=== PATIENT | male | born 1985 | race Caucasian/White ===

== ENCOUNTER 2020-03-19 00:03 | Emergency (ER) | payer MEDICAID, SELFPAY ==
[2020-03-19 00:04] VITALS: BP 178/109; PULSE 71; RESP 16; TEMP 36.9; O2SAT 99; BMI 33.0
--- NOTE | 2020-03-19 00:24 | PC.NURSE ---
pt offered dental balls and refused
--- NOTE | 2020-03-19 00:27 | HMH.EDDENT ---
ED Disposition Clinical Impression: Dental caries, Toothache Disposition: Home, Self-Care Condition on Discharge: Good Instructions: DI for Dental Pain Additional Instructions: use meds and see dentist Prescriptions: cephALEXin [Keflex 500mg Cap] 500 mg PO TID #30 cap Prescription Printed - Critical Care Critical Care Time: No Attestation: On , the high probability of a clinically significant, sudden or life threatening deterioration of the following system(s) required my full and direct attention, intervention and personal management. The time I documented below is in addition to time spent performing reported procedures but includes the following listed in this critical care notation. Medical Decision Making - Medical Records Medical records reviewed: Yes: I reviewed the patient's medical records. - Javier Inquiry Pt receiving controlled substance: No Vital Signs: 03/19/20 00:04 Temperature 98.5 F Temperature Source Oral Pulse Rate [Left Radial] 71 Respiratory Rate 16 Blood Pressure [Right Arm] 178/109 H Blood Pressure Mean [Right Arm] 132 Blood Pressure Source [Right Arm] Automatic Cuff Blood Pressure Position [Right Arm] Sitting 02 Sat by Pulse Oximetry 99 Oxygen Delivery Method Room Air - Lab Data Lab results reviewed: Yes: I reviewed the patient's lab results. Dental HPI - General Chief complaint: Dental/Oral Stated complaint: toothache Time Seen by Provider: 03/19/20 00:27 Mode of Arrival: Ambulatory Source of Information: Patient, Medical Record Limitations: No Limitations Description of Symptoms (Recalled from ER Triage Doc. by RN): pt complains of dental pain at his right wisdom tooth for the last 4 months. pt denies hx of fever or chills - History of Present Illness HPI Narrative: pt with rt sided dental pain - worse over the last few days Complaint: tooth pain Onset (ago): day(s) Duration: intermittent Severity: moderate Context: history of dental caries, poor dental care Treatment prior to arrival: none - Related Data Previous Rx's Medication Instructions Recorded cephALEXin [Keflex 500mg Cap] 500 mg PO TID #30 cap 03/19/20 Allergies Allergy/AdvReac Type Severity Reaction Status Date / Time promethazine [PROMETHAZINE] Allergy Unknown Nausea Verified 03/19/20 00:30 [facility] History - Hepatitis A Screen Drug use history?: No High risk sexual behaviors?: No History of sexually transmitted infection?: No Currently employed?: No Childcare worker?: No Do you have indoor plumbing?: Yes Do you have electricity?: Yes Attestation statement:: This patient has been screened for Hepatitis A risk factors. I have reviewed the patient's past medical history: Yes - Social History Alcohol Intake: never Occupational Status: unemployed ROS Obtained: Yes All systems reviewed & no additional complaints - Constitutional Constitutional: Denies fever(s) - Eyes Eyes: Denies change in vision - ENT Ears, Nose, Mouth, and Throat: Reports as per HPI, Reports dental pain, Denies sore throat - Cardiovascular Cardiovascular: Denies chest pain - Gastrointestinal Gastrointestingal: Denies: vomiting - Genitourinary Male Genitourinary: Denies hematuria - Musculoskeletal Musculoskeletal: Denies joint pain, Denies joint swelling - Integumentary/Breasts Skin/Breast: Denies rash - Neurologic Neurologic: Denies seizure-like activity Physical Exam - General General appearance: alert - Head Head exam: normocephalic - Eye Eye exam: Present: PERRL, EOMI - ENT ENT exam: Present: mucous membranes moist - Expanded ENT Exam Teeth exam: Present: dental caries, gingival swelling Throat exam: Present: normal inspection - Neck Neck exam: Present: full ROM - Respiratory Respiratory exam: Present: normal lung sounds bilaterally. Absent: respiratory distress - Cardiovascular Cardiovascular exam: Present: regular rate - Abdominal Exam Abdomi
[2020-03-19 00:43] VITALS: BP 159/96; PULSE 89; RESP 16; TEMP 36.9; O2SAT 97
== END 2020-03-19 00:45 | disposition home or self-care (01) ==
PROVIDERS: Emergency Provider Emergency Medicine
DX: K02.9 Dental caries, unspecified (principal)
CPT/HCPCS: 99281

== ENCOUNTER 2020-06-06 17:08 | Inpatient (IN) | payer MEDICARE, MEDICAID, SELFPAY ==
[2020-06-06] VITALS (19 sets, daily range): BP systolic 120–174; BP diastolic 64–115; PULSE 66–108; RESP 16–19; TEMP 36.3–43; O2SAT 91–100; BMI 30.3
--- NOTE | 2020-06-06 17:23 | HMH.EDGENADL ---
ED Disposition Clinical Impression: Foreign body anus/rectum Qualifiers: Encounter type: initial encounter Qualified Code(s): T18.5XXA - Foreign body in anus and rectum, initial encounter Disposition: Admitted as Observation Condition on Discharge: Good - Critical Care Critical Care Time: No Attestation: On , the high probability of a clinically significant, sudden or life threatening deterioration of the following system(s) required my full and direct attention, intervention and personal management. The time I documented below is in addition to time spent performing reported procedures but includes the following listed in this critical care notation. Medical Decision Making - Javier Inquiry Pt receiving controlled substance: Yes Javier was queried for this patient: No Reason not queried -: Emergent pt cond-no time Risks and benefits of using a controlled substance: were discussed with pt by me Vital Signs: 06/06/20 17:09 Temperature 98.1 F Temperature Source Oral Pulse Rate [Left Radial] 66 Respiratory Rate 18 Blood Pressure [Right Arm] 152/94 H Blood Pressure Mean [Right Arm] 113 Blood Pressure Source [Right Arm] Automatic Cuff Blood Pressure Position [Right Arm] Sitting 02 Sat by Pulse Oximetry 100 Oxygen Delivery Method Room Air Orders (Tests/Meds): ED MEDICATIONS Generic Name Dose Route Start Last Admin Trade Name Freq PRN Reason Stop Dose Admin Sodium Chloride 1,000 mls @ 999 mls/hr 06/06/20 19:00 06/06/20 18:56 Sod Chlor 0.9% 1000ml Bag IV 06/06/20 20:00 999 mls/hr .Q1H1M ABRAHAM Administration Discontinued Medications Generic Name Dose Route Start Last Admin Trade Name Freq PRN Reason Stop Dose Admin Morphine Sulfate 4 mg 06/06/20 18:54 06/06/20 18:57 Morphine 4mg/Ml Syringe IV 06/06/20 18:55 4 mg ONCE ONE Administration Ondansetron HCl 4 mg 06/06/20 18:52 06/06/20 18:57 Ondansetron 4mg/2ml Vial IV 06/06/20 18:53 4 mg ONCE ONE Administration ORDERS Category Date Time Status XR KUB Stat Exams 06/06/20 17:25 Taken - Radiology Data #1 Image(s): Pelvis Large foreign object visualized on plain film Medical Decision Narrative: 35yo M evaluated for foreign object stuck in rectum. Unable to manually remove after several attempts. Discussed with surgery on-call. Agrees to take patient to the endoscopy suite first and proceed to the OR if necessary. Discussed the plan with the patient who is in agreement. Pt is signed over to surgery. General Adult HPI - General Stated complaint: FB lodged in Rectum Time Seen by Provider: 06/06/20 17:23 Mode of Arrival: Ambulatory Source of Information: Patient - History of Present Illness HPI narrative: 35yo M that denies significant past medical history presents the emergency department secondary to foreign body stuck in his rectum. Patient reports he inserted a large dildo into his rectum when it broke. He has been unable to get it out since that time. Is been inserted for approximate hour and a half at this point. He complains of extreme pain. Pain is improved with stretching his anus. He denies any other acute recent illness, denies fever, nausea/vomit/diarrhea. Patient did take a laxative prior to arrival. - Related Data Previous Rx's Medication Instructions Recorded cephALEXin [Keflex 500mg Cap] 500 mg PO TID #30 cap 03/19/20 Allergies Allergy/AdvReac Type Severity Reaction Status Date / Time promethazine [PROMETHAZINE] Allergy Unknown Nausea Verified 03/19/20 00:30 [facility] History - Hepatitis A Screen Drug use history?: Yes Attestation statement:: This patient has been screened for Hepatitis A risk factors. - Social History Alcohol Intake: never Occupational Status: unemployed ROS Obtained: Yes All systems reviewed & no additional complaints - Gastrointestinal Gastrointestingal: Reports: system reviewed and no additional complaints, except as docu Physical Exam
--- NOTE | 2020-06-06 17:25 | XR_ITS ---
PROCEDURE: XR KUB CLINICAL INDICATION: foreign body in rectum COMPARISON: CT ABDPELW/O CT ABD PELVIS W/O CONTRAST from 04/15/2014 FINDINGS: AP and lateral films show a tubular appearing radiolucency mid rectum measuring approximately 5.7 cm in length on the lateral image. Though radiolucent it is less radiolucent than gas seen in the ascending and transverse colon. IMPRESSION: Possible tubular foreign body mid upper rectum Dictated by: Dr. Candido Garvin MD 06/07/2020 08:44 Dr. Candido Garvin MD in OV 06/07/2020 08:44
--- NOTE | 2020-06-06 19:00 | PC.NURSE ---
dr philippe at bedside.
--- NOTE | 2020-06-06 19:03 | PC.NURSE ---
anesthesia at bedside
--- NOTE | 2020-06-06 20:12 | HMH.SCOPE ---
- Procedure: Date: 06/06/20 Patient Date of :: 1985 Procedure Performed:: Anoscopy with manual manipulation of rectal foreign body Indications:: Anal/rectal foreign body Performing Provider:: Smith Harrison MD Referring Provider:: Emergency department Sedation:: Monitored anesthesia care Procedure:: After informed consent was obtained the patient was taken to the endoscopy suite. Monitored anesthesia care ensued and he was transferred to the left lateral decubitus position. Digital rectal exam revealed a palpable rectal foreign body. The foreign body had the consistency of malleable rubber. The foreign body was grasped with tenaculum. No obvious mucosal injury was noted secondary to the tenaculum. Pressure was applied; however, the foreign body could not be removed as the grasping devices did not afford appropriate purchase . Further attempts were deemed unwarranted and the decision was made to proceed with operative intervention. Findings:: Large malleable rubbery rectal foreign body not able to be retrieved endoscopically Specimens:: None Recommendations:: The patient will be taken to the operating room for intervention Complications:: No immediate with the exception of inability to remove foreign body Estimated blood obtained (mL): 0
--- NOTE | 2020-06-06 20:24 | HMH.GSHP ---
HPI HPI: This is a 35-year-old gentleman who presents to the emergency department with an anal/rectal foreign body. The foreign body was not able to be removed by the emergency department physician and the decision was made to proceed with endoscopic retrieval (possible operative retrieval). Please see HPI from emergency department evaluation forwarded below. From emergency department evaluation: General Adult HPI - General Stated complaint: FB lodged in Rectum Time Seen by Provider: 06/06/20 17:23 Mode of Arrival: Ambulatory Source of Information: Patient - History of Present Illness HPI narrative: 35yo M that denies significant past medical history presents the emergency department secondary to foreign body stuck in his rectum. Patient reports he inserted a large dildo into his rectum when it broke. He has been unable to get it out since that time. Is been inserted for approximate hour and a half at this point. He complains of extreme pain. Pain is improved with stretching his anus. He denies any other acute recent illness, denies fever, nausea/vomit/diarrhea. Patient did take a laxative prior to arrival. [facility] History Medical History: Denies:: Asthma, Diabetes Mellitus Type 1, Hypertension *Have you ever received a pneumonia vaccine?: No *Have you received a flu vaccine this season?: No Other Medical History: Denies: Anemia Other Surgeries: Yes: No Previous Surgery - *Social History Last grade of school completed: High school graduate Smoking Status: Current every day smoker Alcohol Intake: never *Occupational Status:: unemployed *Travel in the last 8 weeks: None Family Hx:: No significant family history Review of Systems - Constitutional Denies chills - Eyes Denies change in vision - ENT Denies difficulty swallowing - *Cardiovascular Denies chest pain - *Respiratory Denies cough - *Gastrointestinal Reports abdominal pain - *Genitourinary Denies blood in urine - *Musculoskeletal Denies deformity - Integumentary/Breasts Denies new lesions - *Neurologic Denies abnormal speech - Psychiatric Denies anxiety - Endocrine Denies cold intolerance - Hematologic/Lymphatic Denies easy bleeding Meds Home Medications Medication Instructions Recorded Confirmed Type cephALEXin [Keflex 500mg Cap] 500 mg PO TID #30 cap 03/19/20 Rx Allergies Allergy/AdvReac Type Severity Reaction Status Date / Time promethazine [PROMETHAZINE] Allergy Unknown Nausea Verified 03/19/20 00:30 Exam Vital signs and Labs for Last 24 Hours: Temp Pulse Resp BP Pulse Ox 98.1 F 88 19 174/115 H 100 06/06/20 19:23 06/06/20 19:23 06/06/20 19:23 06/06/20 19:23 06/06/20 17:09 I & O for Last 24 hours: Intake & Output 06/04/20 06/05/20 06/06/20 06/07/20 11:59 11:59 11:59 11:59 Weight 230 lb - Constitutional mild distress - *Routine HEENT Exam Head: Present: normocephalic, atraumatic Eye: Present: EOMI ENT: Present: mucous membranes moist - *Routine Neck Exam Present: full ROM - Routine Chest/Breast/Axilla Exam Chest wall: Absent: tenderness - *Routine Respiratory Exam Absent: respiratory distress - *Routine Cardiovascular Exam Present: RRR - *Routine Abdominal Exam Present: soft - *Routine Rectal Exam Comments: Patient refused secondary to having just undergone attempted removal by the emergency department physician - *Routine Exam Penile: Absent: swelling - *Routine Extremities Exam Present: full ROM - Routine Back/Spine/Pelvis Exam Back/Spine: Present: full ROM - *Routine Skin Exam Present: intact - *Routine Neurological Exam Present: alert - Routine Psychiatric Exam Present: normal affect Results - Results Abdominal x-ray: image reviewed Assessment and Plan (1) Foreign body anus/rectum Status: Acute Qualifiers: Encounter type: initial encounter Qualified Code(s): T18.5XXA - Foreign body in anus and
[2020-06-06 21:47] LABS: Basophils # 0.1 K/mm3 (0-0.2); Basophils % 0.6 % (0.1-2.0); Eosinophils % 0.3 % (0.1-12.0); Hematocrit 44.9 % (42.0-52.0); Hemoglobin 15.4 g/dL (14.1-18.0); Lymphocytes # 1.5 K/mm3 (0.7-4.5); Lymphocytes % 10.7 % (10-50); Mean Corpuscular HGB Conc 34.3 g/dL (31.8-35.4); Mean Corpuscular Hemoglobin 30.1 pg (27.0-31.2); Mean Corpuscular Volume 87.7 fl (80-94); Mean Platelet Volume 9.3 fl (7.4-10.4); Monocytes # 0.5 K/mm3 (0.1-1.0); Monocytes % 3.7 % (1.7-9.3); Neutrophils # 11.4 K/mm3 (1.8-7.8); Neutrophils % 84.7 % (37.0-80.0); Platelet Count 359 K/mm3 (142-424); Red Blood Count 5.12 M/mm3 (4.60-6.20); Red Cell Distribution Width 13.5 % (11.5-17.5); White Blood Count 13.5 K/mm3 (4.8-10.8)
[2020-06-06 21:50] LABS: Anion Gap 14.4 mEq/L (5-15); Blood Urea Nitrogen 13 mg/dl (9-20); Carbon Dioxide 29 mmol/L (22.0-30.0); Chloride 100 mmol/L (98-107); Creatinine Clearance Estimated 127 mL/min (50-200); Estimated Glomerular Filt Rate 69 ml/min (>60); GFR (African American) 83 ML/MIN (>60); Glucose 141 mg/dl (74-100); Potassium 3.4 mmoL/L (3.5-5.1); Sodium 140 mmol/L (136-145)
[2020-06-06 22:05] LABS: Coronavirus 19 IgG Antibody Negative (Negative); Coronavirus 19 IgM Antibody Negative (Negative)
--- NOTE | 2020-06-06 22:54 | HMH.ANESCL ---
[facility] Anesthesia Checklist - Patient Identification Patient Identification: Arm Band - Structural Data Admitted From: Emergency Dept Planned Operative Procedure/s: Removal of Foreign Body Rectum Consent for Planned Operative Procedure(s) Verified: Yes Verified Documents: Surgical Consent, History and Physical - NPO Status Verified Time NPO: 13:00 (Pt states that he has not had anything to eat or drink for at least 6 hours) - Additional verifications Anesthesia Reactions: No - Airway Assessment C-Spine Mobility Assessed: Yes (mp2) TMJ Mobility Assessed: Yes Dentition: Poor Dentition - Neurological Assessment Level of Consciousness: Awake, Alert - Anesthesia Plan Anesthesia Risk discussed: Yes Anesthesia Plan: Verified ASA Class: II (e) Anesthesia Type: General [facility] History I have reviewed the patient's past medical history: Yes Medical History: Denies:: Asthma, Diabetes Mellitus Type 1, Hypertension *Have you ever received a pneumonia vaccine?: No *Have you received a flu vaccine this season?: No Other Medical History: Denies: Anemia Anesthesia experience/problems:: nac Other Surgeries: Yes: No Previous Surgery - *Social History Last grade of school completed: High school graduate Smoking Status: Current every day smoker Alcohol Intake: never Substance Use Type: denies use *Occupational Status:: unemployed *Travel in the last 8 weeks: None Family Hx:: No significant family history
--- NOTE | 2020-06-06 23:14 | PC.NURSE ---
Alert, oriented, skin warm and dry to touch, resp even and unlabored. IVF infusing to RAC, C/o pain to rectum. medicated with 1 mg iv Diluadid. Moderate amount of blood on sheet. no active bleeding noted.
--- NOTE | 2020-06-06 23:30 | PC.NURSE ---
Medicated with diluadid .5 mg IV
--- NOTE | 2020-06-06 23:31 | PC.NURSE ---
Patient vomited moderate amount of undigested food. suction per Hillary MELVIN.
[2020-06-07] VITALS (31 sets, daily range): BP systolic 107–137; BP diastolic 60–88; PULSE 74–115; RESP 14–18; TEMP 36.6–38.3; O2SAT 90–99; BMI 30.4
--- NOTE | 2020-06-07 00:02 | PC.NURSE ---
Spoke with Manish, order to medicated with Diluadid .5 mg IV
--- NOTE | 2020-06-07 00:43 | P.OP_ITS ---
Date of procedure: 06/07/20 Pre-op Diagnosis:: Rectal foreign body Post-op Diagnosis:: Same Procedure performed:: Anorectal examination under anesthesia Exploratory laparotomy with colotomy for foreign body removal Surgeon:: Smith Harrison MD Ruby Engineer(s):: Chris ECONOMIC HISTORY TEACHER:: Uriel Walden Anesthesia: GETA Estimated blood loss (mL): 25 Operative findings:: Rectal foreign body not able to be removed transanally Large malleable rubbery foreign body projecting toward sigmoid colon Foreign body unable to be maneuvers more proximally Sigmoid colotomy (transverse/slightly oblique) utilized to access foreign body for manual extraction Operative note:: After informed consent was obtained the patient was taken to the operating room and placed in the supine position. He was then transferred to a modified lithotomy position. Careful inspection and digital exam with manipulation was not successful in removing the very large malleable rubbery foreign body from the rectum. The decision was made to proceed with exploratory laparotomy. The abdomen was prepped and draped in a sterile fashion. A somewhat low midline incision was then made to just above the umbilicus. The abdomen was carefully entered. A very large palpable malleable foreign body was noted in the midline just below the umbilicus as the abdomen was entered. The sigmoid colon was exceptionally distended with the malleable yet nonmobile foreign body. A transverse (ultimately somewhat oblique) incision was made over the most proximal projection of the foreign body. The sigmoid colon was entered and the foreign body was manually extracted and passed off the table. Minimal feculent fluid was carefully evacuated. The area was thoroughly irrigated. The sigmoid colotomy was then closed in 2 layers with running Vicryl and interrupted Nurolon. The abdomen was thoroughly irrigated. Some irrigant was left within the abdominal cavity. A rigid proctoscope was then secured in position and the rectum/sigmoid colon was insufflated. No obvious leak noted. Visual inspection with the rigid proctoscope revealed no obvious injury of the anal canal, rectum, or sigmoid colon. Attention was then turned to closure. The fascia was reapproximated with #2 Novafil. The skin was partially closed with interrupted 4-0 nylon. The intervening incisional wounds were packed open with moistened gauze. Dressings were applied and the patient was transferred to recovery in stable condition after extubation. Condition: stable Disposition: PACU Specimens:: Foreign body removed. Not sent for pathologic evaluation. Complications:: No immediate
--- NOTE | 2020-06-07 00:56 | HMH.ANESI ---
[facility] Anesthesia Record Part I Intake, IV Amount: 1,700 Estimated blood loss (mL): 25 Urine output (mL): 150 Blood Pressure: 119/60 SaO2: 92 Pulse Rate: 74 Respiratory Rate: 16 Temperature: 98 F Patient is:: Drowsy, Stable Stable to PACU at:: 00:50
--- NOTE | 2020-06-07 01:21 | PC.NURSE ---
patient up to floor via stretcher from surgery.
[2020-06-07 02:45] LABS: Microscopic,Cath URINE MICROSCOPIC (MICROSCOPIC)
[2020-06-07 02:48] LABS: Appearance,Urine/Cath CLEAR (Clear); Bilirubin,Cath Negative (Negative); Blood, Urine/Cath 2+ (Negative); Color,Urine/Cath YELLOW (Yellow); Glucose,Urine/Cath (UA) Negative (Negative); Ketones,Urine/Cath Negative (Negative); Leukocyte Esterase,Cath Negative (Negative); Nitrate,Cath Negative (Negative); Protein,Urine/Cath Negative (Negative); Urobilinogen,Cath 0.2 EU/dl (0.2)
[2020-06-07 02:49] LABS: Amorphous Sediment,Ur/Cath Trace /lpf
--- NOTE | 2020-06-07 03:58 | PC.NURSE ---
DRILL PRESS OPERATOR NUMERICAL CONTROL pump was set up at 0300 with assistance from OLEGARIO Gaines, pt was educated on no one pushing button but the patient, risk of overdose, and pain scale
--- NOTE | 2020-06-07 05:51 | PC.NURSE ---
RASS [id number] -1 0330 0 0345 0 0400 0 0500 0
--- NOTE | 2020-06-07 05:53 | PC.NURSE ---
currently audible snoring is heard from pts room
--- NOTE | 2020-06-07 05:59 | PC.NURSE ---
pt arrived to floor at 012 and was resting with eyes closed at this time, within a half hour of arriving to floor pt vomited all over the floor, has not vomited since this time, at that time pt had no complaints of pain, MONKEY KEEPER pump started at 030, OLEGARIO Gaines assisted, dressing to abdomen, C/D/I, pain pump has been moved every time I go back to check on pt, pt states that he watches how much he is getting, pt is very educated about how the MONKEY KEEPER pump works and even knows how the dosing works, pt also states that his pain would be a lot worse if he wasnt trained in meditation and was able to reach euphoria, pt has been educated several times on no one pushing the MONKEY KEEPER pump button but him, and the risk of overdose, IS at bedside and pt has been educated on the use of it as well
[2020-06-07 06:29] LABS: Basophils % 0.2 % (0.1-2.0); Eosinophils # 0.2 K/mm3 (0.0-0.4); Eosinophils % 0.9 % (0.1-12.0); Hematocrit 42.6 % (42.0-52.0); Hemoglobin 14.5 g/dL (14.1-18.0); Lymphocytes # 0.7 K/mm3 (0.7-4.5); Lymphocytes % 3.8 % (10-50); Mean Corpuscular HGB Conc 34.1 g/dL (31.8-35.4); Mean Platelet Volume 8.6 fl (7.4-10.4); Monocytes # 0.9 K/mm3 (0.1-1.0); Monocytes % 4.9 % (1.7-9.3); Neutrophils # 15.8 K/mm3 (1.8-7.8); Neutrophils % 90.2 % (37.0-80.0); Platelet Count 256 K/mm3 (142-424); Red Blood Count 4.84 M/mm3 (4.60-6.20); Red Cell Distribution Width 13.5 % (11.5-17.5); White Blood Count 17.6 K/mm3 (4.8-10.8)
--- NOTE | 2020-06-07 06:29 | PC.NURSE ---
[facility] 0600 -1
--- NOTE | 2020-06-07 06:30 | PC.NURSE ---
RECTIFIER OPERATOR pump cleared pt demanded 18, received 4, 6.6 mL delivered
[2020-06-07 06:34] LABS: MANUAL DIFFERENTIAL MANUAL DIFFERENTIAL (MANUAL DIFF)
[2020-06-07 07:25] LABS: Chloride 104 mmol/L (98-107); Potassium 4.1 mmoL/L (3.5-5.1); Sodium 139 mmol/L (136-145)
[2020-06-07 07:28] LABS: Anion Gap 14.1 mEq/L (5-15); Blood Urea Nitrogen 15 mg/dl (9-20); Carbon Dioxide 25 mmol/L (22.0-30.0); Creatinine Clearance Estimated 138 mL/min (50-200); Estimated Glomerular Filt Rate 76 ml/min (>60); GFR (African American) 92 ML/MIN (>60)
[2020-06-07 07:29] LABS: Calcium 9.3 mg/dl (8.4-10.2); Glucose 143 mg/dl (74-100)
--- NOTE | 2020-06-07 07:30 | PC.NURSE ---
At 7:20 when pain pump was assessed with previous shift nurse, retail support specialist pump indicated there was 3 mg given since pump was cleared at 6 am by previous shift nurse.
--- NOTE | 2020-06-07 07:54 | HMH.ANESII ---
[facility] Anesthesia Record Part II Discharge Time: 01:20 Destination: Medical Surgical Department PACU nurse assessment reviewed?: Yes Patient Condition:: Good Anesthesia Complications:: None Swallowing reflex intact?: Yes Cyanosis?: No Blood Pressure: 120/81 Pulse Rate: 83 Temperature: 98 F Mental Status: Alert & Oriented Pain level:: 0 Nausea and/or vomitting:: None Intake, IV Amount: 0
[2020-06-07 08:04] LABS: Lymphocytes % 13 % (10-50); Monocytes % 8 % (2-9); Neutrophils % 79 % (42-76); Platelet Estimate Normal; RBC Morphology Normal; Total Cells Counted 100
--- NOTE | 2020-06-07 08:18 | PC.NURSE ---
Notified this morning as patient has elevated heart rate and fever. Per sepsis protocol notified physician for notification. Orders include providing an incentive spirometer for patient along with educating him on use, getting patient out of bed and ambulating him and discontinuing quick catheter.
--- NOTE | 2020-06-07 09:05 | HMH.PHAVTE ---
[facility] Pharmacy VTE Monitoring - Patient Demographics Admission date: 06/07/20 Report Date: 06/07/20 Time: 09:05 Allergies/Adverse Reactions: Patient Allergies promethazine [PROMETHAZINE] Allergy (Unknown, Verified 03/19/20 00:30) Nausea Height: 1.85 m Weight: 104.326 kg Patient Problems: Current Active Problems Foreign body anus/rectum (Acute) - VTE Risk Labs: VTE Related Lab Results Hgb 14.5 g/dL (14.1-18.0) 06/07/20 06:13 Hct 42.6 % (42.0-52.0) 06/07/20 06:13 Plt Count 256 K/mm3 (142-424) D 06/07/20 06:13 BUN 15 mg/dl (9-20) 06/07/20 06:13 Creatinine 1.10 mg/dl (0.66-1.25) 06/07/20 06:13 Estimated Creat Clear 138 mL/min (50-200) 06/07/20 06:13 Was VTE Risk Assessment Performed: Yes VTE Score: 1 VTE Risk Level: Very Low Risk - Prophylaxis VTE Prophylaxis Ordered?: Yes Types of VTE Prophylaxis: IPCS Thigh High Location of Applied Device: Bilateral Lower Extremeties
--- NOTE | 2020-06-07 09:25 | PC.NURSE ---
Patient was sleeping in bed comfortably at beginning of assessment. Upon assessment patient was very argumentative regarding care. Requested medication for swollen abdomen, none ordered or available. Will defer that to the surgeon when he rounds. Bowels sounds are active in all quadrant except for right upper, which are slightly hypoactive. Patient requests cruise director pump be facing him at all times so he can determine that he is getting the proper dose. Will continue to monitor patient.
--- NOTE | 2020-06-07 10:53 | P.PN_ITS ---
Subjective Patient reports: still having pain, pain is less Progress Note: A&P (1) Foreign body anus/rectum Status: Acute Assessment and plan: Overall, doing fairly well status post exploratory laparotomy with sigmoid colotomy for foreign body extraction. Increase ambulation (2) Low grade fever Status: Acute Assessment and plan: Increase ambulation Incentive spirometer (3) Leukocytosis Status: Acute Assessment and plan: Continue Zosyn secondary to need for colotomy with unprepped bowel Repeat CBC tomorrow morning Exam Vital signs and Labs for Last 24 Hours: Temp Pulse Resp BP Pulse Ox 99.4 F 110 H 16 116/68 96 06/07/20 09:00 06/07/20 09:00 06/07/20 09:00 06/07/20 09:00 06/07/20 09:00 Laboratory Results - last 24 hr 06/06/20 18:45: WBC 13.5 H, RBC 5.12, Hgb 15.4, Hct 44.9, MCV 87.7, MCH 30.1, MCHC 34.3, RDW 13.5, Plt Count 359, MPV 9.3, Neut % (Auto) 84.7 H, Lymph % (Auto) 10.7, Charlton % (Auto) 3.7, Eos % (Auto) 0.3, Baso % (Auto) 0.6, Neut # (Auto) 11.4 H, Lymph # (Auto) 1.5, Charlton # (Auto) 0.5, Eos # (Auto) 0.0, Baso # (Auto) 0.1 06/06/20 18:45: Sodium 140, Potassium 3.4 L, Chloride 100, Carbon Dioxide 29, Anion Gap 14.4, BUN 13, Creatinine 1.20, Estimated Creat Clear 127, Estimated GFR 69, Est GFR ( Amer) 83, Glucose 141 H, Calcium 10.0 06/06/20 18:45: SARS-CoV-2 IgG Ab (Rapid) Negative, SARS-CoV-2 IgM Ab (Rapid) Negative 06/06/20 23:00: Urine Color Yellow, Urine Appearance Clear, Urine pH 6.0, Ur Specific Atkinson 1.020, Urine Protein Negative, Urine Glucose (UA) Negative, Urine Ketones Negative, Urine Blood 2+, Urine Nitrate Negative, Urine Bilirubin Negative, Urine Urobilinogen 0.2, Ur Leukocyte Esterase Negative, Urine RBC 5-10 06/07/20 06:13: WBC 17.6 H D, RBC 4.84, Hgb 14.5, Hct 42.6, MCV 88.0, MCH 30.0, MCHC 34.1, RDW 13.5, Plt Count 256 D, MPV 8.6, Neut % (Auto) 90.2 H, Lymph % (Auto) 3.8 L, Charlton % (Auto) 4.9, Eos % (Auto) 0.9, Baso % (Auto) 0.2, Neut # (Auto) 15.8 H, Lymph # (Auto) 0.7, Charlton # (Auto) 0.9, Eos # (Auto) 0.2, Baso # (Auto) 0.0, Total Counted 100, Neutrophils % (Manual) 79 H, Lymphocytes % (Manual) 13, Monocytes % (Manual) 8, Platelet Estimate Normal, RBC Morphology Normal 06/07/20 06:13: Sodium 139, Potassium 4.1 D, Chloride 104, Carbon Dioxide 25, Anion Gap 14.1, BUN 15, Creatinine 1.10, Estimated Creat Clear 138, Estimated GFR 76, Est GFR ( Amer) 92, Glucose 143 H, Calcium 9.3 I & O for Last 24 hours: Intake & Output 06/04/20 06/05/20 06/06/20 06/07/20 11:59 11:59 11:59 11:59 Intake Total 2459 / 2459 Output Total 550 / 550 Balance 1909 / 1909 Weight 229 lb 15.991 oz - Constitutional no acute distress - *Routine Respiratory Exam Absent: respiratory distress - *Routine Cardiovascular Exam Present: tachycardia Comments: mild - *Routine Abdominal Exam Comments: dressing in place. no cellulitis.
--- NOTE | 2020-06-07 11:04 | PC.NURSE ---
Attempted to educate patient on incentive spirometer. Explained that these devices aide in preventing pneumonia and help with oxygenation issues following surgery and hospitalization. Patient states I've don't smoke so I don't need it . I again advised patient that all patients are at risk following surgery so these are indicated for everyone. Patient states that he still will not need one because he spent 10 years riding a bicycle so he stays in optimum health. Will continue attempting to encourage patient to use IS. Patient also expressed concerns about iv fluids because he was unable to see them flowing in the chamber. IV is intact and infusing.
--- NOTE | 2020-06-07 17:15 | PC.NURSE ---
pt requested staff do not give any info on exactly why pt is here at [facility] to anyone. I reminded pt without his permission we arent allowed to give info out anyways.
--- NOTE | 2020-06-07 18:12 | PC.NURSE ---
Patient is resting in bed. Neurologically patient is very argumentative about care. He will allow the nurses to do what they need to do, however, he is often correcting the staff as to how to do what they need to do. Is alert and oriented x 4. Anxious about his family visiting tomorrow, especially his father. Patient states that his family doesn't like this side of him . Ensured patient that we would not give out his medical information without his permission. Cardiac: Patients heartrate has been greater than 90 for the majority of the shift. MD is aware and not alarmed. Temperature is greater than 99.5, tmax 100.7. MD aware. Blood pressure has been hemodynamically stable. Respiratory: Patient was on oxygen at start of shift. Patient is now on room air, oxygenation is now 94% on room air. Continues to refuse the incentive spirometer despite advice to use it. Skin: dressing is intact. No drainage noted. Patient did give himself a partial bath today at bedside. GI: Patient is on sips and chips per md. Remains npo to all food. Patient is passing gas. Attempted to have a bm, scant amount of blood noted per patient. : Patient has voided in toilet. Rolon discontinued this am. Fluids: LR infusing at 125 hr, IV 20 r ac. 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 Patient has had no complaints of pain. Patient has ambulated in the hadley and in his room. Standby assist. Will continue to monitor.
--- NOTE | 2020-06-07 18:25 | PC.NURSE ---
care by Claudy Tucker RN was supervised by primary rn, Maryjane Cárdenas
--- NOTE | 2020-06-07 18:44 | PC.NURSE ---
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 new morphine vial placed in pump. verified dosing, and setting with Celia Morton RN
--- NOTE | 2020-06-07 21:20 | PC.NURSE ---
pt ambulating in hadley at this time
--- NOTE | 2020-06-07 23:47 | PC.NURSE ---
dressing change performed w/ assistance from OLEGARIO Gaines, moderate amount of blood tinged drainage noted on 4x4s, 2 pieces of 2 inch kerlix used to pack open areas, 4x4s placed over top of incision with medipore tape over top of that, pt tolerated well
[2020-06-08] VITALS (10 sets, daily range): BP systolic 129–149; BP diastolic 76–89; PULSE 101–120; RESP 16–18; TEMP 37–38.1; O2SAT 91–97; BMI 29.1
--- NOTE | 2020-06-08 02:06 | PC.NURSE ---
antibiotic hung at this time, pt in chair sleeping at this time
--- NOTE | 2020-06-08 03:18 | PC.NURSE ---
0300 entered room to do Q2 vitals, pt resting in chair with eyes closed, when taking vitals, pt began hitting DEICER KIT ASSEMBLER pump button multiple times and stated that he didnt think the thing was working
--- NOTE | 2020-06-08 05:23 | PC.NURSE ---
pump cleared at this time, 28.3 mg used this shift
--- NOTE | 2020-06-08 06:07 | PC.NURSE ---
Addendum entered by Radha Conway RN 06/08/20 06:36: pt rates pain at a 4/10 at this time Original Note: new vial placed, dosage verified with OLEGARIO Gaines
--- NOTE | 2020-06-08 06:37 | PC.NURSE ---
pt has rested off and on this shift, has ambulated in the hallway one time, has been ambulating to and from bathroom, pt refused to use IS, has refused to wear SCUDS, has rested well in the chair, pt has remained tachycardic this shift with rates 110-120, temperature 98.7-100.6, dressing changed done (previous note), dressing remains C/D/I this AM, has been argumentative about his care, has tried to assist nursing staff with his care and offer suggestions, lungs CTA and pt remains on room air
[2020-06-08 06:51] LABS: Basophils % 0.3 % (0.1-2.0); Eosinophils % 0.4 % (0.1-12.0); Hematocrit 39.8 % (42.0-52.0); Hemoglobin 13.6 g/dL (14.1-18.0); Lymphocytes # 1.4 K/mm3 (0.7-4.5); Lymphocytes % 13.8 % (10-50); Mean Corpuscular HGB Conc 34.2 g/dL (31.8-35.4); Mean Corpuscular Hemoglobin 29.9 pg (27.0-31.2); Mean Corpuscular Volume 87.4 fl (80-94); Mean Platelet Volume 8.6 fl (7.4-10.4); Monocytes # 0.5 K/mm3 (0.1-1.0); Monocytes % 5.2 % (1.7-9.3); Neutrophils # 8.2 K/mm3 (1.8-7.8); Neutrophils % 80.4 % (37.0-80.0); Platelet Count 235 K/mm3 (142-424); Red Blood Count 4.55 M/mm3 (4.60-6.20); Red Cell Distribution Width 13.3 % (11.5-17.5); White Blood Count 10.2 K/mm3 (4.8-10.8)
[2020-06-08 06:57] LABS: Anion Gap 11.8 mEq/L (5-15); Blood Urea Nitrogen 12 mg/dl (9-20); Calcium 9.2 mg/dl (8.4-10.2); Carbon Dioxide 28 mmol/L (22.0-30.0); Chloride 102 mmol/L (98-107); Creatinine Clearance Estimated 132 mL/min (50-200); Estimated Glomerular Filt Rate 76 ml/min (>60); GFR (African American) 92 ML/MIN (>60); Glucose 107 mg/dl (74-100); Potassium 3.8 mmoL/L (3.5-5.1); Sodium 138 mmol/L (136-145)
--- NOTE | 2020-06-08 09:18 | P.PN_ITS ---
Subjective Patient reports: feels better, still having pain Progress Note: A&P (1) Foreign body anus/rectum Status: Acute Assessment and plan: Overall, slowly improving status post exploratory laparotomy with sigmoid colotomy for removal. Continue ambulation Continue Zosyn Continue dressing changes Clear liquid diet (2) Low grade fever Status: Acute (3) Leukocytosis Status: Acute Assessment and plan: Improving Exam Vital signs and Labs for Last 24 Hours: Temp Pulse Resp BP Pulse Ox 99.4 F 114 H 18 129/84 93 L 06/08/20 07:37 06/08/20 07:37 06/08/20 07:37 06/08/20 07:37 06/08/20 07:37 Laboratory Results - last 24 hr 06/08/20 06:17: WBC 10.2 D, RBC 4.55 L, Hgb 13.6 L, Hct 39.8 L, MCV 87.4, MCH 29.9, MCHC 34.2, RDW 13.3, Plt Count 235, MPV 8.6, Neut % (Auto) 80.4 H, Lymph % (Auto) 13.8, Williamson % (Auto) 5.2, Eos % (Auto) 0.4, Baso % (Auto) 0.3, Neut # (Auto) 8.2 H, Lymph # (Auto) 1.4, Williamson # (Auto) 0.5, Eos # (Auto) 0.0, Baso # (Auto) 0.0 06/08/20 06:17: Sodium 138, Potassium 3.8, Chloride 102, Carbon Dioxide 28, Anion Gap 11.8, BUN 12, Creatinine 1.10, Estimated Creat Clear 132, Estimated GFR 76, Est GFR ( Amer) 92, Glucose 107 H, Calcium 9.2 I & O for Last 24 hours: Intake & Output 06/05/20 06/06/20 06/07/20 06/08/20 11:59 11:59 11:59 11:59 Intake Total 2459 / 2459 75 / 75 Output Total 550 / 550 600 / 600 Balance 1909 / 1909 -525 / -525 Weight 229 lb 15.991 oz 219 lb 15.988 oz - Constitutional no acute distress - *Routine Respiratory Exam Absent: respiratory distress - *Routine Cardiovascular Exam Present: tachycardia - *Routine Abdominal Exam Present: soft, tenderness Comments: Dressings intact. No cellulitis.
--- NOTE | 2020-06-08 09:30 | PC.NURSE ---
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 14mg cleared from pump. Pump cleared alissa Herbert RN. Tubing and morphine wasted in red biohazard container. Wasted remaining morphine in omni alissa Tucker RN.
--- NOTE | 2020-06-08 10:18 | PC.NURSE ---
PT WALKED AROUND NURSING UNIT X 2 AT THIS TIME
--- NOTE | 2020-06-08 11:05 | PC.NURSE ---
DRESSING CHANGE COMPLETED W ASSISTANCE OF Melo WHITESIDE RN. PT TOLERATED WELL. PER DR SIMS DUE TO SOME DRAINAGE ON DRESSING THIS MORNING, HE STATED WE COULD DO DRY TO DRY DRESSING IF WOUND BED WAS VERY MOIST AND HOLDING FLUID. ONCE OLD DRESSING WAS REMOVED, WOUND BED WAS MOIST AND WE FELT DRY TO DRY WOULD BE BETTER SUITED AT THIS TIME. THE 3 INCISIONS WERE PACKED, 4X4S APPLIED OVER INCISIONS, AND METAPORE TAPE PLACED OVER 4X4S. PT TOLERATED WELL.
--- NOTE | 2020-06-08 11:20 | PC.NURSE ---
PT CALLED THIS NURSE INTO THE ROOM AND TOLD ME HE WAS NAUSEOUS. OFFERED TO GIVE PT ZOFRAN BUT HE REFUSED. HE STATED IT MAKES IT WORSE AND THAT HE WOULD BE OK. HE DIDN'T NEED ANYTHING.
--- NOTE | 2020-06-08 14:25 | PC.NURSE ---
A&OX4. PT HAS TOLERATED RA WELL THROUGHOUT SHIFT. RESPIRATIONS REGULAR AND UNLABORED. LUNG SOUNDS BILATERALLY CLEAR. OCCASIONAL PRODUCTIVE COUGH NOTED. HAND DISH UP PERSON EQUAL. +2 PULSES NOTED THROUGHOUT. ACTIVE BOWEL SOUNDS HEARD IN ALL 4 QUADRANTS. TENDER AND DISTENDED ABDOMEN NOTED. NO BM THUS FAR. PT REPORTS BELCHING AND FLATUS PASSED. PT VOIDS PER TOILET. CLEAR YELLOW URINE NOTED. PT HAS AMBULATED SEVERAL TIMES IN THE ROOM AND HALLWAY. STEADY GAIT NOTED. NO EDEMA NOTED. PT HAS BEEN ENCOURAGED TO USE THE INCENTIVE SPIROMETER 10 TIMES EVERY HOUR WHILE AWAKE BUT HAS REFUSED MOST OF THE SHIFT. PT REFUSED SCUDS. PT HAS TOLERATED CLEAR LIQUID DIET AND FULL LIQUID DIET WELL. PT REPORTED A HEADACHE ONCE. TYLENOL WAS OFFERED BUT PT REFUSED. PT REPORTED NAUSEA ONCE, ZOFRAN WAS OFFERED, BUT PT REFUSED. LR INFUSING AT 125ML/HR. PT HAS BEEN IN THE CHAIR MOST OF THE DAY, BUT IS CURRENTLY IN THE BED SLEEPING. DAD CAME BY TO SEE THE PT. DRESSING CHANGED WAS COMPLETED. SEE PREVIOUS NOTED. ADVERTISING PRODUCTION MANAGER PUMP WAS DC'D THIS SHIFT AND SINCE THEN, PT HASN'T REPORTED ANY PAIN. STATES HE FEELS OK. PT HAS RECEIVED ZOSYN THIS SHIFT AND TOLERATED WELL. PT IS CURRENTLY ASLEEP. BED IN LOWEST POSITION. CALL LIGHT WITHIN REACH. VSS. WILL CONTINUE TO MONITOR.
--- NOTE | 2020-06-08 21:48 | PC.NURSE ---
Pt c/o discomfort to abdomen and requested to have something for gas. Pt stated that he is passing gas and which was witnessed by this nurse. Pt also told this nurse that he placed the yankauer suction tip to his rectum. This nurse observed a small amount of bloody substance in yankauer tool and tubing. This was discarded and new tubing and yankauer tool placed. MD Harrison was notified. New orders received: Simethicone Q6H prn. DSG to abdomen changed. Small drainage noted. Pt tolerated well. Pt has been encouraged to ambulate in hallway and has x1 thus far. No other concerns. Will continue to monitor.
[2020-06-09 04:00] VITALS: BP 126/66; PULSE 92; RESP 16; TEMP 37.1; O2SAT 93
[2020-06-09 04:58] VITALS: BMI 29.4
--- NOTE | 2020-06-09 06:02 | PC.NURSE ---
Pt has had a shower this AM. States that he feels better. Is passing gas and has had multiple small BM's this shift. Pt requested to be SL temporarily. Will continue to monitor.
[2020-06-09 06:47] LABS: Basophils # 0.1 K/mm3 (0-0.2); Basophils % 0.4 % (0.1-2.0); Eosinophils # 0.3 K/mm3 (0.0-0.4); Eosinophils % 2.2 % (0.1-12.0); Hematocrit 39.3 % (42.0-52.0); Hemoglobin 13.4 g/dL (14.1-18.0); Lymphocytes # 2.1 K/mm3 (0.7-4.5); Lymphocytes % 17.1 % (10-50); Mean Corpuscular Hemoglobin 29.9 pg (27.0-31.2); Mean Platelet Volume 8.8 fl (7.4-10.4); Monocytes # 0.6 K/mm3 (0.1-1.0); Monocytes % 4.7 % (1.7-9.3); Neutrophils # 9.2 K/mm3 (1.8-7.8); Neutrophils % 75.6 % (37.0-80.0); Platelet Count 282 K/mm3 (142-424); Red Blood Count 4.46 M/mm3 (4.60-6.20); Red Cell Distribution Width 12.9 % (11.5-17.5); White Blood Count 12.2 K/mm3 (4.8-10.8)
[2020-06-09 07:30] VITALS: BP 125/75; PULSE 91; RESP 18; TEMP 36.9; O2SAT 95
--- NOTE | 2020-06-09 07:46 | HMH.GSPN ---
Subjective Patient reports: feels better, bowel movement Progress Note: A&P (1) Foreign body anus/rectum Status: Acute Assessment and plan: Overall, doing well status post exploratory laparotomy with sigmoid colotomy for foreign body extraction. Likely discharge home later today with close outpatient follow-up. Complete course of antibiotics secondary to need for colotomy with unprepped colon. (2) Low grade fever Status: Acute Assessment and plan: Resolved (3) Leukocytosis Status: Acute Assessment and plan: Mild leukocytosis with normalizing neutrophil percentage Exam Vital signs and Labs for Last 24 Hours: Temp Pulse Resp BP Pulse Ox 98.5 F 91 H 18 125/75 95 06/09/20 07:30 06/09/20 07:30 06/09/20 07:30 06/09/20 07:30 06/09/20 07:30 Laboratory Results - last 24 hr 06/09/20 06:15: WBC 12.2 H, RBC 4.46 L, Hgb 13.4 L, Hct 39.3 L, MCV 88.0, MCH 29.9, MCHC 34.0, RDW 12.9, Plt Count 282, MPV 8.8, Neut % (Auto) 75.6, Lymph % (Auto) 17.1, Stafford % (Auto) 4.7, Eos % (Auto) 2.2, Baso % (Auto) 0.4, Neut # (Auto) 9.2 H, Lymph # (Auto) 2.1, Stafford # (Auto) 0.6, Eos # (Auto) 0.3, Baso # (Auto) 0.1 I & O for Last 24 hours: Intake & Output 06/06/20 06/07/20 06/08/20 06/09/20 11:59 11:59 11:59 11:59 Intake Total 2459 / 2459 75 / 75 4734 / 4734 Output Total 550 / 550 600 / 600 Balance 1909 / 1909 -525 / -525 4734 / 4734 Weight 229 lb 15.991 oz 219 lb 15.988 oz 222 lb 3.615 oz - Constitutional no acute distress - *Routine Respiratory Exam Absent: respiratory distress - *Routine Cardiovascular Exam Present: RRR - *Routine Abdominal Exam Present: soft Comments: Dressing intact. No cellulitis.
--- NOTE | 2020-06-09 07:48 | HMH.DCSUM ---
General - General Admission date:: 06/07/20 Discharge date: 06/09/20 HPI HPI: This is a 35-year-old gentleman who presents to the emergency department with an anal/rectal foreign body. The foreign body was not able to be removed by the emergency department physician and the decision was made to proceed with endoscopic retrieval (possible operative retrieval). Please see HPI from emergency department evaluation forwarded below. From emergency department evaluation: General Adult HPI - General Stated complaint: FB lodged in Rectum Time Seen by Provider: 06/06/20 17:23 Mode of Arrival: Ambulatory Source of Information: Patient - History of Present Illness HPI narrative: 35yo M that denies significant past medical history presents the emergency department secondary to foreign body stuck in his rectum. Patient reports he inserted a large dildo into his rectum when it broke. He has been unable to get it out since that time. Is been inserted for approximate hour and a half at this point. He complains of extreme pain. Pain is improved with stretching his anus. He denies any other acute recent illness, denies fever, nausea/vomit/diarrhea. Patient did take a laxative prior to arrival. Hospital Course Hospital Course: The patient underwent attempted endoscopic removal. Please see endoscopy report for detail. He was then taken to the operating room where removal transanally in the lithotomy position was not successful. Exploratory laparotomy was then performed and the need for sigmoid colotomy for extraction was noted. Please see operative report for detail. He was maintained on Zosyn during the postoperative period secondary to need for colotomy in an unprepped colon . In addition, his incision was left partially open for dressing changes secondary to the above. He did undergo dressing changes without difficulty. During the first 48 hours he did have low-grade fevers and an elevated white blood cell count. His overall leukocytosis did improve; however, his white blood cell count was slightly elevated at the time of discharge. His neutrophil percentage continued to improve. He also was found to be mildly tachycardic during the first 48 hours; however, this had resolved by time of discharge. On the morning of June 09 he was ambulating without difficulty. Bowel function had returned. He was afebrile with stable and normal vital signs. He was discharged on the afternoon of June 09 after an additional dose of Zosyn. A course of Augmentin was prescribed to be completed as an outpatient. Objective Vital signs: Temp Pulse Resp BP Pulse Ox 98.5 F 91 H 18 125/75 95 06/09/20 07:30 06/09/20 07:30 06/09/20 07:30 06/09/20 07:30 06/09/20 07:30 no acute distress - *Routine HEENT Exam Head: Present: normocephalic, atraumatic Eye: Present: EOMI ENT: Present: mucous membranes moist - *Routine Neck Exam Present: full ROM - Routine Chest/Breast/Axilla Exam Chest wall: Absent: tenderness - *Routine Respiratory Exam Absent: respiratory distress - *Routine Cardiovascular Exam Present: RRR - *Routine Abdominal Exam Present: soft - *Routine Rectal Exam Patient deferred: digital exam - *Routine Exam Patient deferred: penile exam - *Routine Extremities Exam Present: full ROM - Routine Back/Spine/Pelvis Exam Back/Spine: Present: full ROM - *Routine Skin Exam Absent: erythema - *Routine Neurological Exam Present: alert, oriented X3 - Routine Psychiatric Exam Present: normal affect Results Labs on day of discharge: Labs from last 24 hours 06/09/20 06:15 WBC 12.2 H RBC 4.46 L Hgb 13.4 L Hct 39.3 L MCV 88.0 MCH 29.9 MCHC 34.0 RDW 12.9 Plt Count 282 MPV 8.8 Neut % (Auto) 75.6 Lymph % (Auto) 17.1 [place] % (Auto) 4.7 Eos % (Auto) 2.2 Baso % (Auto) 0.4 Neut # (Auto) 9.2 H Lymph # (Auto) 2.1 [place] # (Auto) 0.6 Eos # (Auto) 0.3 Baso # (A
[2020-06-09 08:00] VITALS: O2SAT 95
--- NOTE | 2020-06-09 10:41 | SW/DCPLANNER ---
RECEIVED A CALL FROM THE NURSE, JOSIE STATING PATIENT IS GOING TO NEED DRESSING CHANGES POST DISCHARGE... PATIENT IS DISCHARGING HOME LATER IN THE AFTERNOON..I WENT IN TO SEE PATIENT AND TO GIVE HIM OPTIONS FOR HIS DSG CHANGES.. HE STATED HE FELT COMFORTABLE IN DOING THEM HIMSELF... HE WILL BE SENT SOME SUPPLIES TO GET HIM THROUGH FOR A FEW DAYS AND HE WILL NEED TO FOLLOWUP WITH HIS SURGEON... D/C LATER IN AFTERNOON...
--- NOTE | 2020-06-09 11:30 | PC.NURSE ---
PHARMACY EDUCATED PT ON HOME MEDS BEING SENT HOME. I CHANGED THE PATIENT'S DRESSING AND EXPLAINED HOW TO CHANGE THE DRESSING. I STRESSED THE IMPORTANCE OF FOLLOWING A FULL LIQUID DIET AND CHANGING HIS DRESSING BID. PT VERBALIZED UNDERSTANDING. WOUND PACKED WITH 2 INCH KERLEX, 4X4S PLACED ON TOP OF WOUND, AND TAPED WITH METAPORE TAPE. PT TOLERATED WELL. SENT SUPPLIES HOME WITH PT FOR PT TO CHANGE DRESSING HIMSELF. DISCUSSED DISCHARGE INSTRUCTIONS INCLUDING FOLLOW UP APPOINTMENT W PT. HE VERBALIZED UNDERSTANDING OF EVERYTHING AND STATED HE HAD NO QUESTIONS. PT ONLY REPORTED PAIN ONCE AND IT WAS DUE TO A HEADACHE. PT HAD A BM THIS SHIFT. PT IS CURRENTLY WAITING ON A RIDE. VSS. WILL CONTINUE TO MONITOR
== END 2020-06-09 14:15 | disposition home or self-care (01) | DRG 346 ==
LOC: ER 17:23 → SDC 19:20 → 2ND 06-07 12:19
PROVIDERS: Admitting Provider Surgery; Emergency Provider Family Medicine; Visit Provider Surgery
PROC: 0DJD8ZZ Inspection of Lower Intestinal Tract, Via Natural or Artificial Opening Endoscopic (ICD-10-PCS; CPT 45378; principal; 2020-06-06 19:30)
PROC: (CPT 49000; principal; 2020-06-06 22:00)
DX: T18.5XXA Foreign body in anus and rectum, initial encounter (principal)
CPT/HCPCS: 44025; 36415; 74018; 80048; 81001; 85007; 85025; 86328; 96365; 96375; 99283; J0330; J2405; J2543; J2704; J2710

== ENCOUNTER → 2020-07-10 09:44 | Outpatient (CLI) | payer OTHER, SELFPAY ==
--- NOTE | 2020-07-10 09:44 | MR_ITS ---
PROCEDURE: MR HEAD/BRAIN WO CON CLINICAL INDICATION: eval for COMPUTERIZED MILL RECORDER abnormality EPISODES OF MIGRAINE HEADACHES WHERE RINGING IN EARS AND VISION HAS A RED HUE AND THEN BLACK. RT SIDE BODY NUMBNESS [id number]. COMPARISON: No exams were available for comparison TECHNIQUE: Routine multiplanar multi echo sequences are performed without gadolinium enhancement. FINDINGS: No midline shift, mass effect, intracranial hemorrhage, or hydrocephalus is evident. The cerebellopontine angles, cerebellum, and brainstem have an unremarkable appearance. Unremarkable white matter signal intensity. No evidence of acute infarction. The hippocampal gyri are unremarkable in the temporal horns are symmetric. The pituitary, optic chiasm, corpus callosum, and craniocervical junction have an unremarkable appearance. Mucous retention cysts are present in the maxillary sinuses on both sides. No mastoid effusion. IMPRESSION: Negative MRI brain without contrast. No acute intracranial findings. Bilateral maxillary sinus mucous retention cysts Dictated by: Nimesh Mccarty MD 07/11/2020 10:54 Nimesh Mccarty MD in [place] 07/11/2020 10:54
--- NOTE | 2020-07-10 09:44 | MR_ITS ---
PROCEDURE: MR LUMBAR SPINE WO CON CLINICAL INDICATION: eval for abnormality, radiculopathy, myelopathy LBP. WHEN STANDING FOR LONG PERIODS HAS BILATERAL LEG NUMBNESS. NO INJURY. SYMPTOMS X23YRS. NO PRIOR. COMPARISON: No exams were available for comparison TECHNIQUE: Standard multiplanar multiecho sequences are performed without contrast. 3-D MIP and myelographic images are also rendered and reviewed FINDINGS: There is straightening of the lumbar lordosis. The spinal cord ends at the T12-L1 level. L1-L2: Mild facet and ligamentum hypertrophy. L2-L3: Degenerative disc disease with mild bulging disc with facet and ligamentum hypertrophy. L3-L4: Degenerative disc disease with mild bulging disc with facet and ligamentum hypertrophy with bilateral lateral recess and foraminal narrowing. L4-5: Mild concentric bulging disc with facet and ligamentum hypertrophy with bilateral foraminal narrowing greater on the left . L5-S1: Degenerative disc disease with bulging disc and facet and ligamentum hypertrophy. The disc bulge is eccentric toward the left with minimal left-sided foraminal and lateral disc protrusion and moderate left-sided foraminal narrowing No extruded herniated disc or bony canal stenosis. IMPRESSION: Mild multilevel lumbar spondylosis with degenerative disc disease, bulging disc, and facet and ligamentum hypertrophy. Please see above for detailed description at each level. No extruded herniated disc evident. The Dictated by: Nimesh Mccarty MD 07/11/2020 11:04 Nimesh Mccatry MD in [place] 07/11/2020 11:04
== END ==
PROVIDERS: Visit Provider Specialist
DX: M54.5 Low back pain (principal); M79.605 Pain in left leg; G89.29 Other chronic pain; R20.0 Anesthesia of skin; R20.2 Paresthesia of skin; Z86.69 Personal history of other diseases of the nervous system and sense organs
CPT/HCPCS: 70551; 72148; 76376

== ENCOUNTER 2020-07-16 20:21 | Emergency (ER) | payer OTHER, SELFPAY ==
[2020-07-16 20:22] VITALS: BP 131/84; PULSE 98; RESP 16; TEMP 36.8; O2SAT 98; BMI 27.7
[2020-07-16 20:36] VITALS: BP 131/84; PULSE 98; RESP 16; TEMP 36.9; O2SAT 98; BMI 27.7
--- NOTE | 2020-07-16 20:43 | HMH.EDUTC ---
[facility] Disposition Clinical Impression: Pain, dental, Jaw pain, Tooth abscess Disposition: Home, Self-Care Condition on Discharge: Good Instructions: DI for Tooth Abscess Additional Instructions: Take ibuprofen for pain. I sent in a prescription to your pharmacy. Take the antibiotics as directed. You have to follow up with a dentist. Follow up with your regular doctor. GO TO THE ER FOR ANY WORSENING SYMPTOMS Prescriptions: Ibuprofen [Ibuprofen 800mg Tablet] 800 mg PO Q8HP PRN #30 tab PRN Reason: Moderate Pain Transmission Status: Received by [facility] Amoxicillin/Potassium Clav [Augmentin 875-125 Tablet] 1 tab PO Q12H 10 Days #20 tab Transmission Status: Received by [facility] Referrals: PCP,No [Primary Care Provider] - Forms: Work/School Release Time of Disposition: 20:52 Medical Decision Making - Medical Records Medical records reviewed: No: I reviewed the patient's medical records. - Javier Inquiry Pt receiving controlled substance: No Vital Signs: 07/16/20 20:22 07/16/20 20:36 07/16/20 21:03 Temperature 98.3 F 98.5 F 98 F Temperature Source Oral Oral Pulse Rate 93 H Pulse Rate [Left Radial] 98 H 98 H Respiratory Rate 16 16 18 Blood Pressure 130/80 Blood Pressure [Right Arm] 131/84 131/84 Blood Pressure Mean [Right Arm] 99 99 Blood Pressure Source [Right Arm] Automatic Cuff Automatic Cuff Blood Pressure Position [Right Arm] Sitting Sitting 02 Sat by Pulse Oximetry 98 98 Oxygen Delivery Method Room Air Room Air Orders (Tests/Meds): ED MEDICATIONS Discontinued Medications Generic Name Dose Route Start Last Admin Trade Name Freq PRN Reason Stop Dose Admin Ceftriaxone Sodium 1 gm 07/16/20 20:41 07/16/20 20:52 Ceftriaxone 1gm Vial IM 07/16/20 20:42 1 gm ONCE ONE Administration Protocol Ketorolac Tromethamine 60 mg 07/16/20 20:41 07/16/20 20:52 Ketorolac 60mg/2ml Vial IM 07/16/20 20:42 60 mg ONCE ONE Administration Lidocaine HCl 0 ml 07/16/20 20:41 07/16/20 20:52 Lidocaine 1% 5ml Pf Vial IM 07/16/20 20:42 2.1 ml ONCE ONE Administration [facility] HPI - General Stated complaint: Tooth ache, migraine Time Seen by Provider: 07/16/20 20:30 Mode of Arrival: Ambulatory Source of Information: Patient Limitations: No Limitations Description of Symptoms (Recalled from Triage Doc. by RN): pt is having HEENT Symptoms (Recalled from RN notes): Yes (decayed fractured teeth. black pain 03/22) Resp Symptoms (Recalled from RN notes): No Skin Symptoms (Recalled from RN notes): No MS Symptoms (Recalled from RN notes): No Functional Status (Recalled from RN notes): na - History of Present Illness Provider Complaint: He states that he has had dental pain for the past 2 days. He has multiple decayed teeth. He states that he thinks that at least 1 is abscessed. He denies any fever and chills. - Related Data Previous Rx's Medication Instructions Recorded Amoxicillin/Potassium Clav 1 tab PO Q12H 10 Days #20 tab 07/16/20 [Augmentin 875-125 Tablet] Ibuprofen [Ibuprofen 800mg 800 mg PO Q8HP PRN #30 tab 07/16/20 Tablet] Allergies Allergy/AdvReac Type Severity Reaction Status Date / Time promethazine [PROMETHAZINE] Allergy Unknown Nausea Verified 07/16/20 20:51 - Worker's Comp Is this a Worker's Comp case?: No [facility] History - Hepatitis A Screen Drug use history?: No High risk sexual behaviors?: No History of sexually transmitted infection?: No Currently employed?: No Childcare worker?: No Do you have indoor plumbing?: Yes Do you have electricity?: Yes Attestation statement:: This patient has been screened for Hepatitis A risk factors. I have reviewed the patient's past medical history: Yes Medical History: Reports:: Anxiety, Depression, Migraine Denies:: Asthma, Cancer, Diabetes Mellitus Type 1, Diabetes Mellitus Type 2, Hypertension, MRSA Other Medical History: Reports: Arthritis. De
[2020-07-16 21:03] VITALS: BP 130/80; PULSE 93; RESP 18; TEMP 36.6
== END 2020-07-16 21:05 | disposition home or self-care (01) ==
PROVIDERS: Emergency Provider Nurse Practitioner Family
DX: K04.7 Periapical abscess without sinus (principal); R68.84 Jaw pain; R51.9 Headache, unspecified; Z88.8 Allergy status to other drugs, medicaments and biological substances; F41.9 Anxiety disorder, unspecified; F32.9 Major depressive disorder, single episode, unspecified; M19.90 Unspecified osteoarthritis, unspecified site; Z87.891 Personal history of nicotine dependence; F12.90 Cannabis use, unspecified, uncomplicated
CPT/HCPCS: 96372; 99202; G0463

== ENCOUNTER → 2020-09-04 08:56 | Outpatient (POV) | payer OTHER, SELFPAY ==
[2020-09-04 09:22] VITALS: BP 149/75; PULSE 74; RESP 18; O2SAT 98; BMI 28.3
--- NOTE | 2020-09-04 12:20 | HMH.PMCON ---
Assessment and Plan (1) Degenerative joint disease (DJD) of lumbar spine Status: Chronic Category: Medical Code(s): M47.816 - Spondylosis without myelopathy or radiculopathy, lumbar region (2) Radiculopathy Status: Chronic Category: Medical Code(s): M54.10 - Radiculopathy, site unspecified - Assessment and plan all Dx Assessment and Plan for all problems:: We will schedule the patient for L4-L5 lumbar epidural steroid injection. I will follow-up with him after this reassess his symptoms at that time he has been instructed to call the office if he has any issues prior to his next appointment. He is not on any anticoagulation therapy. Dr. Spencer has reviewed this note and agrees with this plan of care. This note was dictated using voice recognition software and may contain errors or omissions HPI - Data of Consult Consult date: 09/04/20 Requesting Physician: Kathy Gomez APRN Primary Care Provider: Referral Provider, MD - Consult Narrative Reason for consult: Back pain History of present illness: Mr. Crowell is a 35 year old male for consultation regards to his low back pain. Patient states that he has had back pain for years. He is recently been seen by neurology with a negative nerve conduction study. He rates his pain today a 9 out of 10. Patient states this is mostly in his low back and bilateral lower extremities. He does have an MRI showing some degenerative disc disease. Patient states he knows that he has a herniated disc due to the dark spot on the MRI that he saw. I discussed with him that that was not on the report but he does have disc bulges patient states that he has thoroughly studied over the last 7 years martial arts and meditation. He states that this is how he manages his pain. He states that he has to utilize 85% of his return from to control his pain during the day. Patient states he does take naproxen and Tylenol. Patient has been to chiropractic therapy to which she states was not helpful. Patient states that he feels like the dark spot on his MRI could be from a lumbar puncture that he had in 2001. CC: Kathy Gomez APRN [facility] History I have reviewed the patient's past medical history: Yes Medical History: Reports:: Anxiety, Depression, Migraine Denies:: Asthma, Cancer, Diabetes Mellitus Type 1, Diabetes Mellitus Type 2, Hypertension, MRSA *Have you ever received a pneumonia vaccine?: Yes *Have you received a flu vaccine this season?: Yes Other Medical History: Reports: Arthritis. Denies: Anemia Other Surgeries: Yes: No Previous Surgery, Other Amputation: No Fractures: No - *Social History Smoking Status: Never smoker Tobacco Type: cigarettes # Packs/Day (cigarettes): 1 Alcohol Intake: never Substance Use Type: marijuana Last Used Substance: unknown *Occupational Status:: other Housing: house Household Members: other *Travel in the last 8 weeks: None - Psychiatric History Pschychiatric History:: Reports:: Anxiety, Depression Family Hx:: Unable to obtain Review of Systems - Review of Systems ROS General: no recent weight change, no fever, no sleep disturbances Respiratory: no cough, no shortness of air, no recurring pulmonary infections Cardiovascular/Peripheral Vascular: No chest pain, No palpitations, no edema, no shortness of breath. Gastrointestinal: no new onset incontinence, normal bowel movements reported Genitourinary: no new onset incontinence Musculoskeletal: Back pain, leg pain Psychiatric: normal mood/ affect, [denies depression], [denies anxiety] Neurological: [denies new onset weakness in extremities], [denies new onset balance issues] Meds Home Medications Medication Instructions Recorded Confirmed Type Ibuprofen [Ibuprofen 800mg 800 mg PO Q8HP PRN #30 tab 07/16/20 08/19/20 Rx Tablet] Allergies Allergy/AdvReac Type Severity Reaction Status Date / Time promethazine [PROMETHAZINE] Allergy Unknown Nausea Kirill
== END ==
PROVIDERS: Visit Provider Clinical Nurse Specialist Family Health
DX: M47.816 Spondylosis without myelopathy or radiculopathy, lumbar region (principal); M54.10 Radiculopathy, site unspecified
CPT/HCPCS: 99202; G0463

== ENCOUNTER 2020-09-05 07:00 | Outpatient (RCR) | payer OTHER, SELFPAY ==
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
== END 2020-10-13 14:46 | disposition home or self-care (01) ==
LOC: PT.CARL 07:00
PROVIDERS: PCP Nurse Practitioner Family; Visit Provider Specialist
DX: M54.5 Low back pain; G89.29 Other chronic pain
CPT/HCPCS: 97110; 97140; 97163

== ENCOUNTER 2020-09-19 10:50 | Day surgery (SDC) | payer OTHER, SELFPAY ==
[2020-09-19 11:14] VITALS: BP 147/101; PULSE 83; RESP 18; TEMP 36.6; O2SAT 98; BMI 28.3
--- NOTE | 2020-09-19 11:24 | HMH.PMPROC ---
- Procedure Date: 09/19/20 Time: 11:25 Anesthesiologist:: Cali Spencer MD Complications:: None Pre-procedure Diagnosis:: Degenerative disc disease of lumbar spine with lumbar radiculopathy symptoms Post-procedure Diagnosis:: Same Indications for Procedure:: Patient is a pleasant 35-year-old white male who we are treating for low back pain with lumbar radiculopathy symptoms. He does have degenerative changes with ligamentum flavum hypertrophy and bulging disc throughout his lumbar MRI. We will do a lumbar pleural steroid injection today to see if this helps with his pain symptoms. Procedure Details:: Informed consent was obtained and the risk and benefits of the procedure was explained to the patient. The patient was taken to the procedure room. The patient was placed prone on the procedure table. The patient was prepped and draped in sterile fashion. C-arm fluoroscopy was used to view the lumbar spine. Skin and subcutaneous tissues were anesthetized using lidocaine. I placed an 18-gauge epidural needle and advanced into the L4-L5 interspace using fluoroscopic guidance and [id number] to air. After confirmation of needle placement in the epidural space with dye I injected 2 mL of lidocaine 1.5% with Depo-Medrol 80 mg. Patient tolerated the procedure well with no complications. Plan and Disposition:: We will follow-up with him in 2 weeks. Will reevaluate his symptoms at that time.
[2020-09-19 11:31] VITALS: BP 133/86; PULSE 83; RESP 18
[2020-09-19 11:33] VITALS: BP 135/89; PULSE 85; RESP 18; O2SAT 98
[2020-09-19 11:44] VITALS: BP 136/88; PULSE 75; RESP 18; O2SAT 98
== END 2020-09-19 11:45 | disposition home or self-care (01) ==
LOC: SC.PAINP 10:57
PROVIDERS: Visit Provider Anesthesiology
DX: M51.16 Intervertebral disc disorders with radiculopathy, lumbar region (principal); M46.06 Spinal enthesopathy, lumbar region; F41.9 Anxiety disorder, unspecified; F32.9 Major depressive disorder, single episode, unspecified; G43.909 Migraine, unspecified, not intractable, without status migrainosus; Z88.8 Allergy status to other drugs, medicaments and biological substances
CPT/HCPCS: 62323; J1040; Q9966

== ENCOUNTER → 2020-10-13 11:32 | Outpatient (POV) | payer OTHER, SELFPAY ==
[2020-10-13 11:36] VITALS: BP 140/87; PULSE 79; RESP 18; O2SAT 98; BMI 29.5
--- NOTE | 2020-10-13 12:07 | P.CONS_ITS ---
[facility] Pain Management SOAP Note Subjective:: Patient is a 35-year-old white male who are treating for low back pain with lumbar radiculopathy symptoms. He rates his pain an 8 out of 10 today. He is following up after lumbar epidural steroid injection. Patient states that he got a few days of relief but by day 5 his pain had returned. Patient is quite concerned in regards to his MRI picture stating that he has noticed a black marble sized discrepancy between him the picture and the report. I asked the patient if he was interested in neurosurgical consultation. The person accompanying the patient today stated that during his disability claim it was recommended that he had for surgery. However patient states he has not been seen by a surgeon. Patient and I discussed options he states he will move forward with the plan of care if covered by his medical card. ROS General: no recent weight change, no fever, no sleep disturbances Respiratory: no cough, no shortness of air, no recurring pulmonary infections Cardiovascular/Peripheral Vascular: No chest pain, No palpitations, no edema, no shortness of breath. Gastrointestinal: no new onset incontinence, normal bowel movements reported Genitourinary: no new onset incontinence Musculoskeletal: Back pain, leg pain Psychiatric: normal mood/ affect Neurological: [denies new onset weakness in extremities], [denies new onset balance issues] Objective:: Physical Exam General: Alert and oriented x3, no acute distress, pleasant and cooperative, [on room air] Lungs: Resps E/U, Symmetrical chest expansion, Eyes: PERRL Musculoskeletal: Flexion and extension of lumbar spine somewhat guarded secondary to pain, deep tendon reflexes normal, strength in upper and lower extremities [5/5], antalgic gait noted Neurological: speech clear, vp medical equal, no gross sensory deficits Assessment:: Degenerative disc disease lumbar spine lumbar radiculopathy Plan:: We will set him up for repeat L4-L5 lumbar epidural steroid injection we will also send him for a neurosurgical consultation. He has been instructed to call the office if he has any issues prior to his next appointment. Dr. Spencer has reviewed this note and agrees with this plan of care. This note was dictated using voice recognition software and may contain errors or omissions [facility] History I have reviewed the patient's past medical history: Yes Medical History: Reports:: Anxiety, Depression, Migraine Denies:: Asthma, Cancer, Diabetes Mellitus Type 1, Diabetes Mellitus Type 2, Hypertension, MRSA, Seizures *Have you ever received a pneumonia vaccine?: Yes *Have you received a flu vaccine this season?: Yes Other Medical History: Reports: Arthritis. Denies: Anemia, Blood Transfusion Reaction Other Surgeries: Yes: No Previous Surgery, Other (abdominal surgery) Amputation: No Fractures: No - *Social History Smoking Status: Never smoker Tobacco Type: cigarettes # Packs/Day (cigarettes): 1 Alcohol Intake: never Substance Use Type: marijuana *Occupational Status:: other Housing: house Household Members: significant other *Travel in the last 8 weeks: None - Psychiatric History Pschychiatric History:: Reports:: Anxiety, Depression Family Hx:: Unable to obtain
== END ==
PROVIDERS: Visit Provider Clinical Nurse Specialist Family Health
DX: M51.16 Intervertebral disc disorders with radiculopathy, lumbar region (principal)
CPT/HCPCS: 99212; G0463

== ENCOUNTER 2020-10-24 10:33 | Day surgery (SDC) | payer OTHER, SELFPAY ==
[2020-10-24 10:52] VITALS: BP 134/87; PULSE 78; RESP 18; TEMP 36.6; O2SAT 98; BMI 29.5
[2020-10-24 11:16] VITALS: BP 112/87; PULSE 85
[2020-10-24 11:25] VITALS: BP 118/89; PULSE 78; RESP 18; O2SAT 98
--- NOTE | 2020-10-24 11:29 | HMH.PMPROC ---
- Procedure Date: 10/24/20 Time: 11:30 Anesthesiologist:: Cali Spencer MD Complications:: None Pre-procedure Diagnosis:: Degenerative disc disease of lumbar spine with lumbar radiculopathy symptoms Post-procedure Diagnosis:: Same Indications for Procedure:: Patient is a pleasant 35-year-old white male who we have been treating for low back pain with lumbar radiculopathy symptoms. He did get a few days relief with his last lumbar epidural steroid injection. His pain is back. We did review his MRI and did not see anything abnormal other than degenerative changes with bulging disc and ligamentum flavum hypertrophy. We will plan on a repeat lumbar epidural steroid injection under fluoroscopy today to help with his low back pain and leg pain. Procedure Details:: Informed consent was obtained and the risk and benefits of the procedure was explained to the patient. The patient was taken to the procedure room. The patient was placed prone on the procedure table. The patient was prepped and draped in sterile fashion. C-arm fluoroscopy was used to view the lumbar spine. Skin and subcutaneous tissues were anesthetized using lidocaine. I placed an 18-gauge epidural needle and advanced into the L4-L5 interspace using fluoroscopic guidance and [id number] to air. After confirmation of needle placement in the epidural space with dye I injected 2 mL of lidocaine 1.5% with Depo-Medrol 80 mg. Patient tolerated the procedure well with no complications. Plan and Disposition:: We will follow-up with him in 2 weeks. Will reevaluate symptoms at that time.
[2020-10-24 11:33] VITALS: BP 141/92; PULSE 77; RESP 20; O2SAT 98
== END 2020-10-24 11:34 | disposition home or self-care (01) ==
LOC: SC.PAINP 10:35
PROVIDERS: Visit Provider Anesthesiology
DX: M51.16 Intervertebral disc disorders with radiculopathy, lumbar region (principal); M19.90 Unspecified osteoarthritis, unspecified site; F32.9 Major depressive disorder, single episode, unspecified; F41.9 Anxiety disorder, unspecified; Z88.8 Allergy status to other drugs, medicaments and biological substances
CPT/HCPCS: 62323; J1040; Q9966

== ENCOUNTER 2020-11-11 07:39 | Emergency (ER) | payer OTHER, SELFPAY ==
[2020-11-11 07:50] VITALS: BP 147/92; PULSE 79; RESP 18; TEMP 36.7; O2SAT 98; BMI 33.0
--- NOTE | 2020-11-11 08:30 | CT_ITS ---
PROCEDURE: CT LUMBAR SPINE WO CON CLINICAL HISTORY: lumbar pain COMPARISON: CT ABDPELW/O CT ABD PELVIS W/O CONTRAST from 04/15/2014 MR MR LUMBAR SPINE WO CON from 07/10/2020 TECHNIQUE: Axial images obtained with sagittal and coronal reformats. All CT scans at the facility use one or more dose reduction, viz: automated exposure control, ma/kV adjustment per patient size (including targeted exams where dose is matched to indication, i.e. head), or iterative reconstruction technique. FINDINGS: There is normal alignment. No acute fracture or dislocation is evident. No lytic or blastic change. T11-T12: Mild right-sided facet and ligamentum hypertrophy with mild right lateral recess narrowing and moderate right-sided foraminal narrowing. T12-L1: Mild bilateral facet and ligamentum hypertrophy with minimal bilateral lateral recess narrowing. L1-L2: Unremarkable. L2-L3: Degenerative disc disease with endplate irregularity and minimal bulging disc. Minimal bilateral foraminal narrowing.. There is a Schmorl's node present anteriorly involving the superior endplate of L3 with anterior osteophyte L3-L4: Degenerative disc disease with endplate irregularity and minimal bulging disc with mild bilateral foraminal narrowing. Schmorl's node is present anteriorly involving the L4 vertebral body superiorly with anterior osteophyte. L4-5: Mild degenerative disc disease with mild bulging disc. The bulging disc is eccentric toward the left versus a broad-based small cyst central and left paracentral disc protrusion. There is facet and ligamentum hypertrophy with bilateral lateral recess narrowing more prominent on the left. Mild right and moderate left foraminal narrowing with moderate to severe left lateral recess narrowing. L5-S1: Degenerative disc disease with bulging disc and endplate hypertrophic changes which is eccentric toward the left with moderate right and moderate to severe left foraminal narrowing There is moderate thickening of the rectum which is incompletely image with mild stranding of the perirectal fat. There are nonobstructing small bilateral renal calculi. IMPRESSION: 1. Abnormal CT of the lumbar spine with multilevel lumbar spondylosis with degenerative disc disease along with bulging discs, and facet and ligamentum hypertrophy.. Please see above for detailed description at each level. 2. Moderate thickening of the rectum which is incompletely imaged. CT of the abdomen and pelvis with both IV and adequate oral contrast may provide further evaluation if clinically desired. There was rectal thickening on an older CT scan of 04/15/2014. 3. Bilateral nonobstructing renal calculi 4. Nonobstructing bilateral renal calculi Dictated by: Nimesh Mccarty MD 11/11/2020 09:27 Nimesh Mccarty MD in [place] 11/11/2020 09:28
[2020-11-11 08:32] LABS: Microscopic, Urine URINE MICROSCOPIC (MICROSCOPIC)
[2020-11-11 08:34] LABS: Appearance,Urine CLEAR (Clear); Bilirubin,Urine Negative (Negative); Blood, Urine Negative (Negative); Color,Urine YELLOW (Yellow); Glucose,Urine (UA) Negative (Negative); Ketones,Urine Negative (Negative); Leukocyte Esterase,Urine Negative (Negative); Nitrate,Urine Negative (Negative); Protein,Urine Negative (Negative); Specific Gravity, Urine 1.025 (1.005-1.030); Urobilinogen,Urine 0.2 EU/dl (0.2)
--- NOTE | 2020-11-11 08:43 | PC.NURSE ---
pt to CT
[2020-11-11 09:26] LABS: Basophils # 0.1 K/mm3 (0-0.2); Eosinophils # 0.3 K/mm3 (0.0-0.4); Eosinophils % 4.9 % (0.1-12.0); Hematocrit 40.5 % (42.0-52.0); Hemoglobin 14.1 g/dL (14.1-18.0); Lymphocytes # 2.6 K/mm3 (0.7-4.5); Lymphocytes % 37.5 % (10-50); Mean Corpuscular HGB Conc 34.9 g/dL (31.8-35.4); Mean Corpuscular Volume 85.7 fl (80-94); Mean Platelet Volume 8.6 fl (7.4-10.4); Monocytes # 0.5 K/mm3 (0.1-1.0); Monocytes % 7.2 % (1.7-9.3); Neutrophils # 3.4 K/mm3 (1.8-7.8); Neutrophils % 49.4 % (37.0-80.0); Platelet Count 268 K/mm3 (142-424); Red Blood Count 4.72 M/mm3 (4.60-6.20); Red Cell Distribution Width 13.2 % (11.5-17.5); White Blood Count 6.9 K/mm3 (4.8-10.8)
[2020-11-11 09:31] LABS: Anion Gap 11.1 mEq/L (5-15); Blood Urea Nitrogen 13 mg/dl (9-20); Calcium 9.1 mg/dl (8.4-10.2); Carbon Dioxide 24 mmol/L (22.0-30.0); Chloride 109 mmol/L (98-107); Creatinine Clearance Estimated 184 mL/min (50-200); Estimated Glomerular Filt Rate 96 ml/min (>60); GFR (African American) 116 ML/MIN (>60); Glucose 94 mg/dl (74-100); Potassium 4.1 mmoL/L (3.5-5.1); Sodium 140 mmol/L (136-145)
--- NOTE | 2020-11-11 09:47 | HMH.EDGENADL ---
ED Disposition Clinical Impression: Lumbar radiculopathy Strain of lumbar region Qualifiers: Encounter type: initial encounter Qualified Code(s): S39.012A - Strain of muscle, fascia and tendon of lower back, initial encounter Disposition: Home, Self-Care Condition on Discharge: Fair Instructions: DI for Low Back Pain Additional Instructions: Continue stretching exercise try to follow-up with orthopedics and pain management possible lumbar Velcro support Prescriptions: Naproxen [Naprosyn 500mg tablet] 500 mg PO BIDP PRN #10 tab PRN Reason: Moderate Pain Transmission Status: Pending to [facility] predniSONE [Prednisone 20mg Tab] 40 mg PO DAILY 5 Days #10 tab Transmission Status: Pending to [facility] Referrals: Provider,Referral, MD [Primary Care Provider] - Time of Disposition: 10:00 - Critical Care Critical Care Time: No (Home prescriptions for serial blood pressure, dietary delivery recheck) Attestation: On 11/11/20, the high probability of a clinically significant, sudden or life threatening deterioration of the following system(s) required my full and direct attention, intervention and personal management. The time I documented below is in addition to time spent performing reported procedures but includes the following listed in this critical care notation. Medical Decision Making - Medical Records Medical records reviewed: Yes: I reviewed the patient's medical records. - Javier Inquiry Pt receiving controlled substance: No Vital Signs: 11/11/20 07:50 Temperature 98.0 F Temperature Source Oral Pulse Rate [Right] 79 Respiratory Rate 18 Blood Pressure [Left Arm] 147/92 H Blood Pressure Mean [Left Arm] 110 Blood Pressure Source [Left Arm] Automatic Cuff Blood Pressure Position [Left Arm] Sitting 02 Sat by Pulse Oximetry 98 Oxygen Delivery Method Room Air patient does not have a history of hypertension but was in pain initially - Lab Data Lab results reviewed: Yes: I reviewed the patient's lab results. Lab Results 11/11/20 08:00: Urine Color Yellow, Urine Appearance Clear, Urine pH 6.0, Ur Specific Morton 1.025, Urine Protein Negative, Urine Glucose (UA) Negative, Urine Ketones Negative, Urine Blood Negative, Urine Nitrate Negative, Urine Bilirubin Negative, Urine Urobilinogen 0.2, Ur Leukocyte Esterase Negative, Urine RBC None, Urine WBC 3-5, Ur Squamous Epith Cells 3-5, Urine Bacteria None 11/11/20 09:00: WBC 6.9, RBC 4.72, Hgb 14.1, Hct 40.5 L, MCV 85.7, MCH 30.0, MCHC 34.9, RDW 13.2, Plt Count 268, MPV 8.6, Neut % (Auto) 49.4, Lymph % (Auto) 37.5, [place] % (Auto) 7.2, Eos % (Auto) 4.9, Baso % (Auto) 1.0, Neut # (Auto) 3.4, Lymph # (Auto) 2.6, Willacy # (Auto) 0.5, Eos # (Auto) 0.3, Baso # (Auto) 0.1 11/11/20 09:00: Sodium 140, Potassium 4.1, Chloride 109 H, Carbon Dioxide 24, Anion Gap 11.1, BUN 13, Creatinine 0.90, Estimated Creat Clear 184, Estimated GFR 96, Est GFR ( Amer) 116, Glucose 94, Calcium 9.1 No acute significant abnormalities Result diagrams: 11/11/20 09:00 11/11/20 09:00 Orders (Tests/Meds): ED MEDICATIONS Discontinued Medications Generic Name Dose Route Start Last Admin Trade Name Freq PRN Reason Stop Dose Admin Ketorolac Tromethamine 30 mg 11/11/20 09:17 11/11/20 09:33 Ketorolac 30mg/Ml Vial IM 11/11/20 09:18 Not Given ONCE ONE Ketorolac Tromethamine 60 mg 11/11/20 09:34 11/11/20 09:36 Ketorolac 30mg/Ml Vial IV 11/11/20 09:35 60 mg ONCE ONE Administration Methylprednisolone Sodium Succinate 125 mg 11/11/20 09:17 11/11/20 09:32 Methylprednisolone Sod Succ 125mg Vial IM 11/11/20 09:18 125 mg ONCE ONE Administration - Radiology Data #1 Image Reviewed: Yes I reviewed the patient's radiology results, Yes I have reviewed radiologist's interpretation - CT Data CT Scan: L-Spine Time Received: 09:[address] Reviewed: Yes: I have reviewed the patient's CT results, I have viewed the radiologist's interpr
[2020-11-11 10:15] VITALS: BP 137/83; PULSE 87; RESP 16; TEMP 36.7; O2SAT 98
== END 2020-11-11 10:15 | disposition home or self-care (01) ==
PROVIDERS: Emergency Provider Emergency Medicine
DX: S39.012A Strain of muscle, fascia and tendon of lower back, initial encounter (principal); M54.16 Radiculopathy, lumbar region; G43.709 Chronic migraine without aura, not intractable, without status migrainosus; F41.8 Other specified anxiety disorders; F17.210 Nicotine dependence, cigarettes, uncomplicated
CPT/HCPCS: 72131; 80048; 81001; 85025; 96372; 99282

== ENCOUNTER 2020-12-28 23:30 | Emergency (ER) | payer SELFPAY ==
[2020-12-28 23:43] VITALS: BP 145/94; PULSE 71; RESP 18; TEMP 36.8; O2SAT 99; BMI 29.8
--- NOTE | 2020-12-29 | PC.NURSE ---
Pt up to restroom
[2020-12-29 00:10] LABS: Microscopic, Urine URINE MICROSCOPIC (MICROSCOPIC)
[2020-12-29 00:11] LABS: Basophils # 0.1 K/mm3 (0-0.2); Eosinophils # 0.3 K/mm3 (0.0-0.4); Eosinophils % 2.8 % (0.1-12.0); Hematocrit 40.7 % (42.0-52.0); Hemoglobin 14.3 g/dL (14.1-18.0); Lymphocytes # 3.2 K/mm3 (0.7-4.5); Lymphocytes % 35.8 % (10-50); Mean Corpuscular HGB Conc 35.2 g/dL (31.8-35.4); Mean Corpuscular Hemoglobin 29.8 pg (27.0-31.2); Mean Corpuscular Volume 84.8 fl (80-94); Monocytes # 0.5 K/mm3 (0.1-1.0); Neutrophils # 4.9 K/mm3 (1.8-7.8); Neutrophils % 54.4 % (37.0-80.0); Platelet Count 270 K/mm3 (142-424); Red Blood Count 4.79 M/mm3 (4.60-6.20); Red Cell Distribution Width 13.5 % (11.5-17.5)
--- NOTE | 2020-12-29 00:11 | HMH.EDPSYCH ---
ED Disposition Clinical Impression: Dental caries Headache Qualifiers: Headache type: unspecified Headache chronicity pattern: episodic headache Intractability: not intractable Qualified Code(s): R51.9 - Headache, unspecified Disposition: Home, Self-Care Condition on Discharge: Good Instructions: DI for Headache Additional Instructions: see pcp for follow up and use meds and see dentist Prescriptions: clindamycin HCL [Clindamycin HCl] 300 mg PO TID #21 cap Transmission Status: Pending to [facility] SUMAtriptan succinate [Imitrex] 50 mg PO DAILY PRN #7 tab PRN Reason: Headache Transmission Status: Pending to [facility] Referrals: Provider,Referral, [Primary Care Provider] - - Critical Care Critical Care Time: No Attestation: On 12/28/20, the high probability of a clinically significant, sudden or life threatening deterioration of the following system(s) required my full and direct attention, intervention and personal management. The time I documented below is in addition to time spent performing reported procedures but includes the following listed in this critical care notation. Medical Decision Making - Medical Records Medical records reviewed: Yes: I reviewed the patient's medical records. - Javier Inquiry Pt receiving controlled substance: No Vital Signs: 12/28/20 23:43 Temperature 98.2 F Temperature Source Oral Pulse Rate [Right Brachial] 71 Respiratory Rate 18 Blood Pressure [Right Arm] 145/94 H Blood Pressure Mean [Right Arm] 111 Blood Pressure Source [Right Arm] Automatic Cuff Blood Pressure Position [Right Arm] Sitting 02 Sat by Pulse Oximetry 99 Oxygen Delivery Method Room Air - Lab Data Lab results reviewed: Yes: I reviewed the patient's lab results. Lab Results 12/28/20 23:46: WBC 9.0, RBC 4.79, Hgb 14.3, Hct 40.7 L, MCV 84.8, MCH 29.8, MCHC 35.2, RDW 13.5, Plt Count 270, MPV 9.0, Neut % (Auto) 54.4, Lymph % (Auto) 35.8, [place] % (Auto) 6.0, Eos % (Auto) 2.8, Baso % (Auto) 1.0, Neut # (Auto) 4.9, Lymph # (Auto) 3.2, [place] # (Auto) 0.5, Eos # (Auto) 0.3, Baso # (Auto) 0.1 12/28/20 23:46: Sodium 141, Potassium 4.2, Chloride 105, Carbon Dioxide 29, Anion Gap 11.2, BUN 13, Creatinine 1.10, Estimated Creat Clear 136, Estimated GFR 76, Est GFR ( Amer) 92, Glucose 95, Calcium 9.7, Total Bilirubin 0.2, AST 40, ALT 61, Alkaline Phosphatase 69, Total Protein 7.7, Albumin 4.7, Globulin 3.0, Albumin/Globulin Ratio 1.6, Salicylates < 1.0 L, Acetaminophen < 10 L 12/29/20 00:02: Urine Color Yellow, Urine Appearance Sl cloudy, Urine pH 6.0, Ur Specific [place] 1.025, Urine Protein Negative, Urine Glucose (UA) Negative, Urine Ketones Negative, Urine Blood Negative, Urine Nitrate Negative, Urine Bilirubin Negative, Urine Urobilinogen 0.2, Ur Leukocyte Esterase Negative Result diagrams: 12/28/20 23:46 12/28/20 23:46 Orders (Tests/Meds): ORDERS Category Date Time Status CT head/brain wo con Stat Cat Scan 12/28/20 23:52 Stop Req Drug Screen,Urine Stat Lab 12/28/20 23:52 Received Urinalysis and Microscopic Stat Lab 12/29/20 00:02 Results Medical Decision Narrative: no clinicalneed for ct -head as pt has had mri brain recently - has chronic dental issue and cervantes - Psych HPI - General Chief Complaint: Psychiatric Symptoms Stated Complaint: Migraine,Nausea,toothache Time Seen by Provider: 12/29/20 00:00 Mode of Arrival: Family Vehicle Source of Information: Patient, Medical Record Limitations: No Limitations Description of Symptoms (Recalled from ER Triage Doc. by RN): pt presents with a multitude of complaints. begins by stating my head is ringing in a tone from the back of my head to the front of my head ; i am nauseated, have loss of focus and lack of sleep ; spent about five minutes discussing frequency jammers implanted in the ceilings of the ER and how we (staff) didn't know about them. No specific medical complaint that is emergent per his own statement except
[2020-12-29 00:12] LABS: Chloride 105 mmol/L (98-107)
[2020-12-29 00:13] LABS: Potassium 4.2 mmoL/L (3.5-5.1); Sodium 141 mmol/L (136-145)
[2020-12-29 00:15] LABS: Alanine Aminotransferase 61 U/L (12-78); Alkaline Phosphatase 69 U/L (38-126); Aspartate Amino Transferase 40 U/L (17-59); Bilirubin,Total 0.2 mg/dl (0.2-1.3); Blood Urea Nitrogen 13 mg/dl (9-20); Creatinine Clearance Estimated 136 mL/min (50-200); Estimated Glomerular Filt Rate 76 ml/min (>60); GFR (African American) 92 ML/MIN (>60)
[2020-12-29 00:16] LABS: Albumin Level 4.7 g/dl (3.5-5.0); Albumin/Globulin Ratio 1.6 (1.1-1.8); Anion Gap 11.2 mEq/L (5-15); Calcium 9.7 mg/dl (8.4-10.2); Carbon Dioxide 29 mmol/L (22.0-30.0); Glucose 95 mg/dl (74-100); Total Protein,Serum 7.7 g/dl (6.3-8.2)
[2020-12-29 00:17] LABS: Acetaminophen < 10 ug/ml (10-30); Salicylate < 1.0 mg/dL (2.0-20.0)
[2020-12-29 00:17] LABS: Appearance,Urine SL CLOUDY (Clear); Bilirubin,Urine Negative (Negative); Blood, Urine Negative (Negative); Color,Urine YELLOW (Yellow); Glucose,Urine (UA) Negative (Negative); Ketones,Urine Negative (Negative); Leukocyte Esterase,Urine Negative (Negative); Nitrate,Urine Negative (Negative); Protein,Urine Negative (Negative); Specific Gravity, Urine 1.025 (1.005-1.030); Urobilinogen,Urine 0.2 EU/dl (0.2)
[2020-12-29 00:26] LABS: Bacteria,Urine Trace /lpf; Barbiturates Screen,Urine Negative ng/ml (<200); Benzodiazepines Screen,Urine Negative ng/ml (<200); Mucus,Urine 1+ /lpf; Squamous Epithelial Cell,Urine Occasional #/hpf (0-5); WBC,Urine Occasional #/hpf (0-3)
[2020-12-29 00:27] LABS: Amphetamine/Metha Screen,Urine Negative ng/ml (<1000)
[2020-12-29 00:28] LABS: Cannabinoid Screen,Urine Negative ng/ml (<50); Cocaine Screen,Urine Negative ng/ml (<300)
[2020-12-29 00:29] LABS: Methadone Screen,Urine Negative ng/ml (<300)
[2020-12-29 00:30] VITALS: BP 140/72; PULSE 81; RESP 18; TEMP 36.8; O2SAT 98
[2020-12-29 00:30] LABS: Opiate Screen,Urine Negative ng/ml (<300); Phencyclidine Screen,Urine Negative ng/ml (<25)
== END 2020-12-29 01:08 | disposition home or self-care (01) ==
PROVIDERS: Emergency Provider Emergency Medicine
DX: K02.9 Dental caries, unspecified (principal); R11.0 Nausea; F41.8 Other specified anxiety disorders; G43.909 Migraine, unspecified, not intractable, without status migrainosus
CPT/HCPCS: 80053; 80305; 80329; 81001; 85025; 96374; 99282

== ENCOUNTER 2021-02-08 20:02 | Emergency (ER) | payer SELFPAY ==
[2021-02-08 20:03] VITALS: RESP 18; TEMP 36.9; O2SAT 98; BMI 31.5
--- NOTE | 2021-02-08 21:19 | HMH.EDUTC ---
[facility] [place] Clinical Impression: Chronic low back pain Qualifiers: Back pain laterality: midline Sciatica presence: without sciatica Qualified Code(s): M54.5 - Low back pain; G89.29 - Other chronic pain Disposition: Home, Self-Care Condition on Discharge: Good Instructions: DI for Low Back Pain Referrals: Provider,Referral, [Primary Care Provider] - Forms: Work/School Release Time of Disposition: 21:25 Medical Decision Making - Javier Inquiry Pt receiving controlled substance: No Vital Signs: 02/08/21 20:03 Temperature 98.4 F Temperature Source Oral Respiratory Rate 18 02 Sat by Pulse Oximetry 98 Oxygen Delivery Method Room Air [facility] [place] - General Chief complaint: Back Pain/Injury Stated complaint: BACK PAIN Time Seen by Provider: 02/08/21 21:19 Mode of Arrival: Ambulatory Limitations: No Limitations Description of Symptoms (Recalled from Triage Doc. by RN): Pt has a h/x of back issues: bulging disc, bone spurrs, and sciatica. He was on his way top get a heating pad at the store when he decided, I just better get something for this pain . Pt states I just need something for this inflammation, pain and work excuse. Pt does not want to spend time getting ct's or hours of waiting . He denies any new injury/trauma causing this back issue. HEENT Symptoms (Recalled from RN notes): No Resp Symptoms (Recalled from RN notes): No Skin Symptoms (Recalled from RN notes): No MS Symptoms (Recalled from RN notes): Yes Functional Status (Recalled from RN notes): na - History of Present Illness Provider Complaint: Patient has history of chronic low back pain. Pain has flared up. He takes Tylenol and Motrin daily and they help but still has pain. He has bulging discs and arthritis. Would like something for pain/inflammation and a note for work tomorrow. Onset (ago): day(s) (1) Location: back Radiation: non-radiation Consistency: constant Relieving factors: none Exacerbating factors: none Associated symptoms: denies other symptoms Treatments prior to arrival: none - Related Data Previous Rx's Medication Instructions Recorded Ibuprofen [Ibuprofen 800mg 800 mg PO Q8HP PRN #30 tab 07/16/20 Tablet] Naproxen [Naprosyn 500mg tablet] 500 mg PO BIDP PRN #10 tab 11/11/20 predniSONE [Prednisone 20mg 40 mg PO DAILY 5 Days #10 tab 11/11/20 Tab] SUMAtriptan succinate [Imitrex] 50 mg PO DAILY PRN #7 tab 12/29/20 clindamycin HCL [Clindamycin HCl] 300 mg PO TID #21 cap 12/29/20 Allergies Allergy/AdvReac Type Severity Reaction Status Date / Time promethazine [PROMETHAZINE] Allergy Unknown Nausea Verified 11/11/20 07:59 ondansetron AdvReac Intermediate Verified 11/11/20 07:59 - Worker's Comp Is this a Worker's Comp case?: No [facility] History - Hepatitis A Screen Drug use history?: Yes High risk sexual behaviors?: No History of sexually transmitted infection?: No Currently employed?: No Childcare worker?: No Do you have indoor plumbing?: Yes Do you have electricity?: Yes Attestation statement:: This patient has been screened for Hepatitis A risk factors. I have reviewed the patient's past medical history: Yes Medical History: Reports:: Anxiety, Depression, Migraine Denies:: Asthma, Cancer, Diabetes Mellitus Type 1, Diabetes Mellitus Type 2, Hypertension, MRSA, Seizures Other Medical History: Reports: Arthritis. Denies: Anemia, Blood Transfusion Reaction Other Surgeries: Yes: No Previous Surgery, Other (abdominal surgery) Amputation: No Fractures: No - Social History Smoking Status: Never smoker Tobacco Type: cigarettes # Packs/Day (cigarettes): 1 Alcohol Intake: current Alcohol Intake Frequency:: holidays/special occasions only Substance Use Type: marijuana Occupational Status: employed Housing: house Household Members: significant other - Psychiatric History Pschychiatric History:: Reports:: Anxiety, Depression Family Hx:: Unable to obtain ROS Obtained: Yes All systems r
[2021-02-08 22:00] VITALS: BP 138/88; PULSE 82; RESP 14; TEMP 36.9
== END 2021-02-08 22:02 | disposition home or self-care (01) ==
PROVIDERS: Emergency Provider Physician Assistant
DX: M54.5 Low back pain (principal); G89.29 Other chronic pain; F41.8 Other specified anxiety disorders; G43.709 Chronic migraine without aura, not intractable, without status migrainosus
CPT/HCPCS: 96372; 99291; J1030

== ENCOUNTER 2021-02-24 17:45 | Emergency (ER) | payer SELFPAY ==
[2021-02-24 18:40] VITALS: BP 126/72; PULSE 72; RESP 17; TEMP 36.8; O2SAT 98; BMI 29.2
--- NOTE | 2021-02-24 18:54 | HMH.EDUTC ---
[facility] – [place] Disposition Clinical Impression: Low back pain Qualifiers: Chronicity: acute Back pain laterality: left Sciatica presence: with sciatica Sciatica laterality: sciatica of left side Qualified Code(s): M54.42 - Lumbago with sciatica, left side Disposition: Home, Self-Care Condition on Discharge: Good Instructions: DI for Low Back Pain Additional Instructions: Go home and rest. It would be best if you rested tomorrow too. No heavy lifting. No twisting. Take the oral medications as directed. The muscle relaxer (cyclobenzaprine) will make you drowsy, so don't drive or operate heavy machinery after taking it. Don't start the oral steroids (medrol dose pack) until tomorrow, since you had the shots in here today. Follow up with your regular doctor. GO TO THE ER FOR ANY WORSENING SYMPTOMS OR CONCERN, ESPECIALLY BOWEL OR BLADDER ISSUES, SADDLE AREA NUMBNESS, FEVER, ETC Prescriptions: Cyclobenzaprine HCl [Cyclobenzaprine 10mg Tab] 10 mg PO BIDP PRN #20 tab PRN Reason: Muscle Spasm Transmission Status: Received by [facility] methylPREDNISolone [Medrol] 4 mg PO DIRECTED 6 Days #21 packet Transmission Status: Received by [facility] Referrals: Provider,Referral, MD [Primary Care Provider] - Forms: Work/School Release Time of Disposition: 20:05 Medical Decision Making - Medical Records Medical records reviewed: No: I reviewed the patient's medical records. - Javier Inquiry Pt receiving controlled substance: No Vital Signs: 02/24/21 18:40 02/24/21 20:03 Temperature 98.2 F 98.2 F Temperature Source Oral Pulse Rate 72 Pulse Rate [Right Brachial] 72 Respiratory Rate 17 17 Blood Pressure 126/72 Blood Pressure [Right Arm] 126/72 Blood Pressure Mean [Right Arm] 90 Blood Pressure Source [Right Arm] Automatic Cuff Blood Pressure Position [Right Arm] Sitting 02 Sat by Pulse Oximetry 98 Oxygen Delivery Method Room Air Orders (Tests/Meds): ED MEDICATIONS Discontinued Medications Generic Name Dose Route Start Last Admin Trade Name Freq PRN Reason Stop Dose Admin Ketorolac Tromethamine 60 mg 02/24/21 19:54 02/24/21 20:00 Ketorolac 60mg/2ml Vial IM 02/24/21 19:55 60 mg ONCE ONE Administration Methylprednisolone Sodium Succinate 125 mg 02/24/21 19:54 02/24/21 20:00 Methylprednisolone Sod Succ 125mg Vial IM 02/24/21 19:55 125 mg ONCE ONE Administration [facility] [place] HPI - General Stated complaint: back pain, weakness in lt leg Time Seen by Provider: 02/24/21 18:58 - History of Present Illness Provider Complaint: He states that he has had a long history of low back pain. He denies any recent injury. He states that his back pain radiates down his left leg. - Related Data Previous Rx's Medication Instructions Recorded Ibuprofen [Ibuprofen 800mg 800 mg PO Q8HP PRN #30 tab 07/16/20 Tablet] Naproxen [Naprosyn 500mg tablet] 500 mg PO BIDP PRN #10 tab 11/11/20 predniSONE [Prednisone 20mg 40 mg PO DAILY 5 Days #10 tab 11/11/20 Tab] SUMAtriptan succinate [Imitrex] 50 mg PO DAILY PRN #7 tab 12/29/20 clindamycin HCL [Clindamycin HCl] 300 mg PO TID #21 cap 12/29/20 Cyclobenzaprine HCl 10 mg PO BIDP PRN #20 tab 02/24/21 [Cyclobenzaprine 10mg Tab] methylPREDNISolone [Medrol] 4 mg PO DIRECTED 6 Days #21 02/24/21 packet Allergies Allergy/AdvReac Type Severity Reaction Status Date / Time promethazine [PROMETHAZINE] Allergy Unknown Nausea Verified 11/11/20 07:59 ondansetron AdvReac Intermediate Verified 11/11/20 07:59 [facility] History - Hepatitis A Screen Attestation statement:: This patient has been screened for Hepatitis A risk factors. I have reviewed the patient's past medical history: Yes Medical History: Reports:: Anxiety, Depression, Migraine Denies:: Asthma, Cancer, Diabetes Mellitus Type 1, Diabetes Mellitus Type 2, Hypertension, MRSA, Seizures Other Medical History: Reports: Arthritis. Denies: Anemia, Blood
--- NOTE | 2021-02-24 18:59 | XR_ITS ---
PROCEDURE INFORMATION: Exam: XR Lumbosacral Spine Exam date and time: 02/24/2021 6:59 PM Age: 35 years old Clinical indication: Low back pain TECHNIQUE: Imaging protocol: XR of the lumbosacral spine. Views: 2 or 3 views. COMPARISON: CT LUMBAR SPINE WO CON 11/11/2020 8:47 AM FINDINGS: Bones/joints: Mild chronic appearing degenerative changes which are not significantly changed from prior CT. No acute fracture or dislocation. Soft tissues: Unremarkable. IMPRESSION: Mild chronic appearing degenerative changes which are not significantly changed from prior CT.
[2021-02-24 20:03] VITALS: BP 126/72; PULSE 72; RESP 17; TEMP 36.8; O2SAT 98
== END 2021-02-24 20:12 | disposition home or self-care (01) ==
PROVIDERS: Emergency Provider Nurse Practitioner Family
DX: M54.42 Lumbago with sciatica, left side (principal); F41.8 Other specified anxiety disorders
CPT/HCPCS: 72100; 96372; 99202; G0463